=== PATIENT | male | born 1975 | race Caucasian/White ===

== ENCOUNTER 2019-12-26 21:21 | Emergency (ER) | payer OTHER, SELFPAY ==
[2019-12-26 21:25] VITALS: BP 146/100; PULSE 96; RESP 18; TEMP 37.3; O2SAT 98; BMI 32.8
--- NOTE | 2019-12-26 21:41 | PC.NURSE ---
at bedside repairing laceration
--- NOTE | 2019-12-26 21:52 | W.ED.ANIMALB ---
HPI - Animal Bite General: Chief Complaint: Animal Bite Stated Complaint: dog bite Time Seen by Provider: 12/26/19 21:33 History of Present Illness: HPI narrative: Patient was trying to break up a dog fight at his house with his son's dog and received a laceration to his right ring finger. Tetanus is up-to-date immunization dogs are up-to-date MD complaint: animal bite Onset (ago): minute(s) Animal: dog Description of animal: household pet and immunizations UTD Mechanism: bite Location - Extremities: Right: hand Pain description: sharp Severity scale (1-10): 1 Context: animals fighting Associated symptoms: Reports no associated symptoms; Deny chills, fever(s) or headache(s) Review of Systems Const: Denies: fever(s), chills or body aches Eyes: Denies: change in vision or blurry vision ENMT: Denies: throat pain or nasal congestion Card: Denies: chest pain or dyspnea on exertion Resp: Denies: dyspnea, productive cough or non-productive cough GI: Denies: abdominal pain, nausea or vomiting : Denies: difficulty urinating Musc: Denies: extremity pain Skin/Breast: Reports: other (Laceration right ring finger); Denies: rash Neuro: Denies: headache(s) Psych: Denies: anxiety or depression New/Lymph: Denies: easy bruising Physical Exam Const: COMMON NORMALS: no acute distress Psych: COMMON NORMALS: mental status grossly normal Skin: OTHER: Has a laceration to the right ring finger lateral aspect approximately 2 and half inches long has full range of motion finger distal neurovascular intact Procedures Laceration Laceration 1: Site: hand Side (If applicable): right Size (cm): 4.5 Description: linear Depth: simple, single layer Local Anesthetic: lidocaine 1% Amount of anesthesia used (mL): 3 Pre-repair: wound explored and irrigated extensively Skin layer closed with: vicryl Size (cm): 4-0 Number of sutures: 5 Technique: simple, interrupted Course Vital Signs: Vital signs: Vital Signs Temperature 99.2 F 12/26/19 21:25 Pulse Rate 96 12/26/19 21:25 Respiratory Rate 18 12/26/19 21:25 Blood Pressure 146/100 12/26/19 21:25 Pulse Oximetry 98 12/26/19 21:25 Discharge Plan Discharge Patient Disposition: Home Clinical Impression: Dog bite Qualifiers: Encounter type: initial encounter Qualified Code(s): W54.0XXA - Bitten by dog, initial encounter Laceration of finger of right hand Qualifiers: Encounter type: initial encounter Finger: ring finger Damage to nail status: without damage Foreign body presence: without foreign body Qualified Code(s): S61.214A - Laceration without foreign body of right ring finger without damage to nail, initial encounter Condition: Stable Prescriptions: New Augmentin 875-125 mg tablet 1 tab PO BID Qty: 14 RF: 0 Discharge Orders: Discharge Order (Routine); Ordered 12/26/19 Ordered By: Carlos Brito Referrals: Jojo Blanc MD [Primary Care Provider] - Discharge Diet: Usual diet Discharge Activity: Increase activity as tolerated Patient Instructions: Animal Bite (ED), Finger Laceration (ED) Activity Restrictions/Additional Instructions: Follow-up with medical provider as directed. Take medications as prescribed. Return to the ER or your medical provider if condition worsens. Please read and understand discharge instructions. If any questions ask please. Remove sutures in 7 days Discharge Date/Time: 12/26/19 22:14 Coding Level of Care Code ED Infection Prevention Practitioner for Walter Fwd Exam Expanded Problem Focused
[2019-12-26] MEDS: amoxicillin-clav 875-125 mg Tablet 1 TAB PO (22:12)
== END 2019-12-26 22:14 | disposition home or self-care (01) ==
PROVIDERS: Emergency Provider Nurse Practitioner Family; PCP Family Medicine
DX: S61.254A Open bite of right ring finger without damage to nail, initial encounter (principal); W54.0XXA Bitten by dog, initial encounter
CPT/HCPCS: 12002; 12345; 99281; 99283

== ENCOUNTER 2020-10-15 13:13 | Outpatient (CLI) | payer OTHER, SELFPAY ==
--- NOTE | 2020-10-15 13:24 | XRR_ITS ---
PROCEDURE INFORMATION: Exam: XR Lumbosacral Spine Exam date and time: 10/15/2020 1:24 PM Age: 45 years old Clinical indication: Pain and condition or disease; Other: Arthritis; Low back pain TECHNIQUE: Imaging protocol: XR of the lumbosacral spine. Views: 2 or 3 views. COMPARISON: No relevant prior studies available. FINDINGS: Bones/joints: Right L1 hypoplastic rib. Mild lumbar spondylosis. Soft tissues: Unremarkable. XR/XR lumbar spine 2-3V* [id number] IMPRESSION: Mild lumbar spondylosis.
--- NOTE | 2020-10-15 13:24 | XRR_ITS ---
PROCEDURE INFORMATION: Exam: XR Cervical Spine Exam date and time: 10/15/2020 1:24 PM Age: 45 years old Clinical indication: Pain and condition or disease; Other: Arthritis; Neck pain TECHNIQUE: Imaging protocol: XR of the cervical spine. Views: 2 or 3 views. COMPARISON: No relevant prior studies available. FINDINGS: Bones/joints: Bilateral cervical ribs. Mild C4-C5, C5-C6 and C6-C7 degenerative disc disease and spondylosis. Soft tissues: Unremarkable. XR/XR cervical spine 3V* [id number] IMPRESSION: 1. Bilateral cervical ribs. 2. Mild C4-C5, C5-C6 and C6-C7 degenerative disc disease and spondylosis.
--- NOTE | 2020-10-15 13:24 | XRR_ITS ---
PROCEDURE INFORMATION: Exam: XR Right Ankle Exam date and time: 10/15/2020 1:24 PM Age: 45 years old Clinical indication: Pain and condition or disease; Arthritis; Type not specified; Ankle and foot; Bilateral TECHNIQUE: Imaging protocol: XR Right ankle. Views: 1 or 2 views. COMPARISON: No relevant prior studies available. FINDINGS: Bones/joints: Normal. Soft tissues: Normal. XR/XR ankle RT 2V [id number] IMPRESSION: No acute findings.
--- NOTE | 2020-10-15 13:24 | XRR_ITS ---
PROCEDURE INFORMATION: Exam: XR Left Ankle Exam date and time: 10/15/2020 1:24 PM Age: 45 years old Clinical indication: Pain and condition or disease; Arthritis; Type not specified; Ankle and foot; Bilateral TECHNIQUE: Imaging protocol: XR Left ankle. Views: 1 or 2 views. COMPARISON: No relevant prior studies available. FINDINGS: Bones/joints: Chronic healed avulsion fracture and/or ununited accessory ossification center and/or chronic posttraumatic arthritis over the inferior tip of the medial malleolus. Soft tissues: Normal. XR/XR ankle LT 2V [id number] IMPRESSION: No acute findings.
== END 2020-10-15 13:14 | disposition home or self-care (01) ==
PROVIDERS: PCP Family Medicine; Visit Provider Chiropractor
DX: M13.80 Other specified arthritis, unspecified site (principal); M54.5 Low back pain; M47.816 Spondylosis without myelopathy or radiculopathy, lumbar region; M50.321 Other cervical disc degeneration at C4-C5 level
CPT/HCPCS: 72040; 72100; 73600

== ENCOUNTER 2021-09-10 09:32 | Emergency (ER) | payer OTHER, SELFPAY ==
[2021-09-10 09:40] VITALS: BP 134/91; PULSE 73; RESP 16; TEMP 36.7; O2SAT 98; BMI 30.4
--- NOTE | 2021-09-10 09:56 | ED_ITS ---
HPI - Eye Problem General: Chief complaint: Eye Problems Stated complaint: left eye issue Time Seen by Provider: 09/10/21 09:45 Source: patient Mode of arrival: ambulatory Limitations: no limitations History of Present Illness: Patient is a nice 46-year-old male who presents to ED today with a complaint of left eye pain x 1-2 days. Patient tells me he thinks he might of gotten something into it. 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 He never felt anything immediately while working but gradually developed symptoms later that evening. He denies any grinding metal/sand. He is having tearing, redness, and photophobia. No visual changes. Not noticed any swelling to the eye. No direct injury or trauma. Patient is a contact lens wearer. He admittedly does not remove his contacts at night. chief complaint: eye pain and eye redness Onset (ago): day(s) Onset description: gradual Duration: constant Location: left eye Eye Symptoms: redness, pain, foreign body sensation and photophobia Place: home Severity: moderate Context: contact lens use Associated symptoms: Denies fever(s) Treatments Prior to Arrival: none Related Data: Patient tetanus UTD: Yes Review of Systems Const: Denies: fever(s), chills, body aches, fatigue or malaise Eyes: Reports: photophobia, eye discomfort, eye redness and increased production of tears; Denies: change in vision, blurry vision, blind spots, eye discharge, floaters or seeing flashes Physical Exam Const: COMMON NORMALS: no acute distress, average body habitus, patient oriented x3, no limitations, healthy appearing, alert and well nourished HENMT: FACE & SINUS: normal facial exam Eye: COMMON NORMALS: Equal, round and reactive pupils present, EOMs intact bilaterally and no scleral icterus GENERAL EYE: normal light reflex VISUAL ACUITY: Yes acuity normal VISUAL ANDREWS: No peripheral vision loss and No central vision loss ALIGNMENT: Yes alignment normal PERIORBITAL: periorbital findings normal EYELID: eyelids normal CONJUNCTIVA: Yes conjunctival abnormal positive left conjunctival injection CORNEA: Yes fluorescein used PUPIL: Yes Equal, round and reactive pupils present DIRECT OPHTHALMOSCOPY: Yes normal light reflex OTHER: no obvious globe trauma; no subconjuntival hemorrhage or hyphema present; no obvious deficits/abnormalities noted with direct light visualization EYE IMAGES: 1. small punctate lesion noted with fluorescein staining; lesion is not obviously visible under direct light; does appear to have some stain uptake to inferior cornea w/o specific pattern-not dendritic Neuro: COMMON NORMALS: patient oriented x3 SENSORIUM/ORIENTATION: Yes alert Course Vital Signs: Vital signs: Vital Signs Temperature 98.0 F 09/10/21 09:40 Pulse Rate 73 09/10/21 09:40 Respiratory Rate 16 09/10/21 09:40 Blood Pressure 134/91 09/10/21 09:40 Pulse Oximetry 98 09/10/21 09:40 MDM - Eye Problem Medical Decision Making DDx-corneal abrasion due to trauma, foreign body, or contact lens use. 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 Will place on tobramycin which will cover for pseudomonas and have him follow up with opht halmology as soon as possible-CM referral placed for this. Recommend no contact use until told otherwise. Strict return to ED precautions given. Discharge Plan Discharge Patient Disposition: Home Clinical Impression: Corneal abrasion Qualifiers: Encounter type: initial encounter Laterality: left Qualified Code(s): S05.02XA - Injury of conjunctiva and corneal abrasion without foreign body, left eye, initial encounter Condition: Stable Prescriptions: New tobramycin 0.3 % drops 2 drp ophthalmic (eye) Q1H 10 Days Qty: 5 0RF Rx Instructions: 2 drops in L eye every 1 hour until improvement; then 1-2 drops every 4 hours thereafter No Action Augmentin 875-125 mg tablet 1 tab PO BID Qty: 14 0RF Discharge Orders: Discharge ED (Routine); Ordered 09/10/21 Ordered By: Aida Aquino Referrals: Jojo Blanc MD [Physician] - Kali Schwarz MD [Physician] - Coding Level of Care Code ED Component Assembler Supervisor for Walter Lazo
[2021-09-10] MEDS: eye irrigation 30 mL Btl EYE-LEFT (10:28)
[2021-09-10] MEDS: fluorescein 1 mg Strip EYE-LEFT (10:28)
[2021-09-10] MEDS: tetracaine 0.5% Op Soln 4 mL Btl 1 DROP EYE-LEFT (10:29)
--- NOTE | 2021-09-10 11:30 | DCPLANNER ---
it disaster recovery manager had message to schedule a follow up appointment for patient with Dr. Schwarz. it disaster recovery manager faxed patients information to the office of Dr. Schwarz. Clinic will call patient with appointment information.
== END 2021-09-10 10:53 | disposition home or self-care (01) ==
PROVIDERS: Emergency Provider Physician Assistant
DX: S05.02XA Injury of conjunctiva and corneal abrasion without foreign body, left eye, initial encounter (principal); X58.XXXA Exposure to other specified factors, initial encounter
CPT/HCPCS: 99283

== ENCOUNTER 2023-01-13 07:00 | Outpatient (CLI) | payer OTHER, SELFPAY ==
--- NOTE | 2023-01-13 | MR_ITS ---
WS: [id number] MRI CERVICAL SPINE NONCONTRAST TECHNIQUE: Sagittal T1, T2 and STIR imaging. Axial T2, gradient, and fiesta imaging. CLINICAL INFORMATION: RADICULOPATHY COMPARISON: None. FINDINGS: Straightening of the normal cervical lordosis. Cord signal is normal. Mild disc bulging C4-C6. Cord s ignal is normal. C2-C3: Mild facet arthropathy. Mild LEFT foraminal narrowing. C3-C4: Mild facet arthropathy. Mild LEFT and no significant RIGHT bony foraminal narrowing. C4-C5: Disc osteophyte complex with endplate ridging. Mild bilateral bony foraminal narrowing. Modera te facet arthropathy. Spinal canal is patent. C5-C6: Central and LEFT paracentral disc osteophyte protrusion with slight indentation on the cervica l cord. Mild central canal stenosis. Moderate RIGHT and mild LEFT bony foraminal narrowing. Mild arth ropathy. C6-C7: Shallow RIGHT paracentral protrusion. Moderate to severe LEFT and mild RIGHT bony foraminal na rrowing. Spinal canal is patent. C7-T1: Spinal canal and foramen are patent. Visualized brain stem structures: Normal. Prevertebral soft tissues: Normal. IMPRESSION: 1. Straightening normal cervical lordosis. Mild spondylitic changes. 2. Mild central canal stenosis C5-C6 with central and LEFT paracentral disc osteophyte protrusion wi th slight indentation cervical cord. 3. Moderate RIGHT C5-6 and moderate to severe LEFT C6-7 bony foraminal narrowing. 4. Otherwise mild foraminal narrowing described above.
--- NOTE | 2023-01-13 07:13 | US_ITS ---
WS: [id number] RIGHT UPPER QUADRANT ULTRASOUND HISTORY: ELIVATED LIVER ENZIMES COMPARISON: None available. Liver: 17.4 cm in length. Liver is top normal size. No mass. No bile duct dilatation. Portal Vein: Normal hepatopetal flow with monophasic waveform. Gallbladder: Normally distended gallbladder with no stones or wall thickening. CBD: 0.3 cm Pancreas: Obscured. Right kidney: 12.4 cm in length. Normal size and echogenicity. No hydronephrosis or mass. Aorta and IVC: Unremarkable abdominal aorta and IVC. No ascites. IMPRESSION: 1. Normal gallbladder. 2. No bile duct dilatation. 3. Nonvisualization of the pancreas.
== END 2023-01-13 07:01 | disposition home or self-care (01) ==
LOC: RAD 07:02
PROVIDERS: PCP Family Medicine; Visit Provider Family Medicine
DX: M47.22 Other spondylosis with radiculopathy, cervical region (principal); M48.02 Spinal stenosis, cervical region; M25.78 Osteophyte, vertebrae
CPT/HCPCS: 72141; 76705

== ENCOUNTER → 2023-03-19 13:11 | Outpatient (BNVA) | payer OTHER, SELFPAY | PROVIDERS: PCP Family Medicine; Visit Provider Podiatrist Foot & Ankle Surgery | DX: M25.572 Pain in left ankle and joints of left foot (principal); M95.8 Other specified acquired deformities of musculoskeletal system | CPT/HCPCS: 73610; 99203 ==

== ENCOUNTER 2023-04-15 11:24 | Outpatient (CLI) | payer OTHER, SELFPAY ==
--- NOTE | 2023-04-15 11:34 | MR_ITS ---
WS: [id number] MRI LUMBAR SPINE NONCONTRAST TECHNIQUE: Sagittal T1, T2 and STIR imaging. Axial T1 and T2 imaging. CLINICAL INFORMATION: LOW BACK PAIN COMPARISON: None. FINDINGS: Mild lumbar curve. No acute compression. No high-grade central canal stenosis. Shallow central protru sions in the cervical spine at C4-C6. L1-L2: Normal. L2-L3: Mild facet arthropathy. Spinal canal and foramen are patent. L3-L4: Tiny RIGHT foraminal protrusion slightly encroaches on the exiting RIGHT L3 nerve root. Spinal canal and foramen are patent. Mild facet arthropathy. L4-L5: Mild annular bulging. RIGHT eccentric annular fissure. Spinal canal is patent. RIGHT eccentric disc bulging slightly encroaches on the far exiting RIGHT L4 nerve root without significant impingem ent. Mild facet arthropathy. L5-S1: LEFT eccentric disc bulging contacts the far exit LEFT L5 nerve root laterally. Spinal canal a nd RIGHT foramen are patent. Mild facet arthropathy. Visualized pelvic bony structures: Normal. Paravertebral soft tissues: Normal. IMPRESSION: 1. Mild lumbar curve. No acute compression. No high-grade central canal stenosis. 2. Tiny RIGHT foraminal protrusion L4-5 with a small annular fissure slightly encroaches on the far exiting RIGHT L4 nerve root without significant impingement. 3. LEFT eccentric disc bulging L5-S1 contacts the exiting LEFT L5 nerve root laterally. Recommend co rrelation LEFT L5 nerve root symptoms. 4. Tiny RIGHT L3-4 foraminal protrusion slightly encroaches on the exiting RIGHT L3 nerve root. 5. Mild facet arthropathy L4-L5 and L5-S1.
== END 2023-04-15 11:25 | disposition home or self-care (01) ==
LOC: RAD 11:25
PROVIDERS: PCP Family Medicine; Visit Provider Family Medicine
DX: M54.16 Radiculopathy, lumbar region (principal); M51.26 Other intervertebral disc displacement, lumbar region
CPT/HCPCS: 72148

== ENCOUNTER 2023-05-12 14:54 | Outpatient (CLI) | payer OTHER, SELFPAY ==
--- NOTE | 2023-05-12 15:15 | MR_ITS ---
WS: [id number] MRI LEFT ANKLE WITHOUT CONTRAST. COMPARISON: LEFT ankle radiograph 03/19/2023 Multiplanar, multisequence imaging is performed without contrast. History: LEFT ankle pain. History of prior surgical repair along the anterior lateral ankle. Postoper ative pain. There is significant artifact obscuring a large portion of the lateral ankle. Artifact extends throug h the distal fibula into the talus. Obliterating soft tissue in bone evaluation of the lateral ankle joint. There is distortion of the anterior talofibular ligament. The calcaneofibular ligament appears normal. The peroneus brevis and longus tendons are normal course and caliber. Achilles tendon is normal. The flexor hallucis longus and flexor digitorum longus tendons are normal. There is a marker placed along the anterior ankle which corresponds to the extensor digitorum longus tendon. This tendon appears normal. There is no fluid or tear seen. The talus evaluation is limited as is the tibial plafond due to distortion and artifact from the surg ical hardware. IMPRESSION: 1. Large portion of the lateral ankle is distorted and obscured by significant blooming artifact pro bably related to the prior surgery. 2. The visualized flexor and extensor tendons appear normal. 3. No fractures or marrow edema. 4. Normal Achilles tendon.
== END 2023-05-12 14:55 | disposition home or self-care (01) ==
LOC: RAD 14:54
PROVIDERS: PCP Family Medicine; Visit Provider Podiatrist Foot & Ankle Surgery
DX: M95.8 Other specified acquired deformities of musculoskeletal system (principal); Z98.890 Other specified postprocedural states
CPT/HCPCS: 73721

== ENCOUNTER → 2023-05-22 08:57 | Outpatient (BNVA) | payer OTHER, SELFPAY | PROVIDERS: PCP Family Medicine; Referring Provider Family Medicine; Visit Provider Podiatrist Foot & Ankle Surgery | DX: M95.8 Other specified acquired deformities of musculoskeletal system; M25.372 Other instability, left ankle | CPT/HCPCS: 99213 ==

== ENCOUNTER → 2023-08-18 07:47 | Outpatient (BNVA) | payer OTHER, SELFPAY | PROVIDERS: PCP Family Medicine; Visit Provider Podiatrist Foot & Ankle Surgery | DX: M95.8 Other specified acquired deformities of musculoskeletal system; M25.372 Other instability, left ankle | CPT/HCPCS: 99213 ==

== ENCOUNTER 2023-11-08 09:21 | Emergency (ER) | payer OTHER, SELFPAY ==
[2023-11-08 09:25] VITALS: BP 174/107; PULSE 86; RESP 22; TEMP 36.6; BMI 35.2
[2023-11-08 09:33] VITALS: BP 174/107; PULSE 79; RESP 22; O2SAT 95
--- NOTE | 2023-11-08 09:34 | XRR_ITS ---
PROCEDURE INFORMATION: Exam: XR Left Shoulder Exam date and time: 11/08/2023 9:50 AM Age: 48 years old Clinical indication: Pain; Shoulder; Left; Additional info: Non-traumatic shoulder pain TECHNIQUE: Imaging protocol: Radiologic exam of the left shoulder. Views: 2 or more views. COMPARISON: MR cervical spin wo con* [id number] 01/13/2023 8:01 AM FINDINGS: Bones/joints: ACDF changes in the lower cervical spine. Mild degenerative disease of the left acromioclavicular joint. Mild degenerative disease of the left glenohumeral joint. Soft tissues: Normal. XR/XR shoulder LT min 2V* [id number] IMPRESSION: No acute fracture or dislocation.
--- NOTE | 2023-11-08 09:34 | W.ED.EXTPRO ---
HPI - Extremity Problem General: Chief complaint: Extremity Injury, Upper Stated complaint: left shoulder pain Time Seen by Provider: 11/08/23 09:32 History of Present Illness: 48-year-old man who presents the emergency room with left shoulder pain. He says he had driven a few hours and then used his cane with his left arm and when he got home that evening he started having pain and its become worse over time. He says he took hydrocodone last night that did not help that was leftover from an ankle surgery. No known injuries. No redness. Tenderness to palpation on the lateral shoulder area. In the rotator cuff area. Pain with movement. Pain radiates down his arm. No chest pain. No shortness of breath. No fevers. Review of Systems Narrative: Constitutional symptoms: Negative except as documented in HPI. Skin symptoms: Negative except as documented in HPI. Eye symptoms: Negative except as documented in HPI. ENMT symptoms: Negative except as documented in HPI. Respiratory symptoms: Negative except as documented in HPI. Cardiovascular symptoms: Negative except as documented in HPI. Gastrointestinal symptoms: Negative except as documented in HPI. Genitourinary symptoms: Negative except as documented in HPI. Musculoskeletal symptoms: Negative except as documented in HPI. Neurologic symptoms: Negative except as documented in HPI. Psychiatric symptoms: Negative except as documented in HPI. Endocrine symptoms: Negative except as documented in HPI. Physical Exam Narrative: EXAM NARRATIVE: General: Alert, no acute distress. Skin: warm and dry Head: Normocephalic Neck: Trachea midline Eye: Extraocular movements are intact. Ears, nose, mouth and throat: Oral mucosa moist Respiratory: Respirations are non-labored Musculoskeletal: Limited range of motion secondary to pain. Point tenderness on the lateral shoulder joint area. No redness. No warmth. Neurovascularly intact. Neurological: Alert and oriented, No focal neurological deficit observed. Psychiatric: Cooperative, appropriate mood & affect. Course Vital Signs: Vital signs: Vital Signs Temperature 97.8 F 11/08/23 09:25 Pulse Rate 79 11/08/23 09:33 Respiratory Rate 22 H 11/08/23 09:33 Blood Pressure 174/107 11/08/23 09:33 Pulse Oximetry 95 11/08/23 09:33 Oxygen Delivery Me thod Room Air 11/08/23 09:33 MDM - Extremity (Nontraumatic) Medical Decision Making X-ray of the left shoulder: No fractures. No dislocation. No obvious acute abnormalities. This was reviewed and interpreted by myself the emergency room physician. Assessment and plan: Shoulder pain -Hydrocodone, IM Toradol and Decadron in the emergency room. - Discharged home - Discussed plan with patient. Answered any questions. - Evaluation and treatment of this problem were appropriate in the emergency setting. XR interpretation done by ED provider, pending radiology final review Discharge Plan Discharge Patient Disposition: Home Clinical Impression: Injury of left rotator cuff Qualifiers: Encounter type: initial encounter Qualified Code(s): S46.002A - Unspecified injury of muscle(s) and tendon(s) of the rotator cuff of left shoulder, initial encounter Condition: Stable Prescriptions: New hydrocodone-acetaminophen 5-325 mg tablet 1 tab PO Q6H PRN (Reason: pain) Qty: 20 0RF dexamethasone 6 mg tablet 6 mg PO DAILY 5 Days Qty: 5 0RF diclofenac sodium 50 mg tablet,delayed release (DR/EC) 50 mg PO Q12H Qty: 20 0RF Miralax 17 gram/dose powder 17 g PO DAILY Qty: 510 0RF Rx Instructions: Take 1 scoop daily while taking pain medications. No Action Augmentin 875-125 mg tablet 1 tab PO BID Qty: 14 0RF Discharge Orders: Discharge ED (Routine); Ordered 11/08/23 Ordered By: Jessica Aldrich Referrals: Jasmyn Morocho MD [Primary Care Provider] - 1-3 days Chase Lemus DO [Physician] - 4-7 days (Call for an appointment if pain persists) Discharge Activity: Increase activity as tolerated Patient Instructions: Shoulder Pain (ED) Activity Restrictions/Additional Instructions: Thank you for choosing [facility] for your healthcare needs today. Please realize this is an emergency room and that we are providing you with a medical screening exam and this may not be complete and all inclusive of all the testing and or work up that you may need to determine your ailment or severity of your illness. You have been screened and evaluated and felt safe for discharge. Health conditions do change or evolve sometimes and as such it is important that you follow up with your Primary Doctor to be re checked, 3-5 days is a general good time frame for follow up. You are always welcome to return to the ED for re assessment if your symptoms are worsening or you have new concerns Coding Level of Care Code ED Tubular Splitting Machine Tender for aWlter Lazo
[2023-11-08] MEDS: HYDROcodone-acetaminophen 5-325 mg Tablet 1 TAB PO (09:38)
[2023-11-08] MEDS: dexamethasone 10 mg/mL INJ IM (09:43)
[2023-11-08] MEDS: ketorolac 60 mg/2 mL INJ IM (09:44)
[2023-11-08 10:22] VITALS: BP 174/107; PULSE 79; RESP 22; TEMP 36.6; O2SAT 95
== END 2023-11-08 10:30 | disposition home or self-care (01) ==
PROVIDERS: Emergency Provider Emergency Medicine; PCP Family Medicine
DX: S46.002A Unspecified injury of muscle(s) and tendon(s) of the rotator cuff of left shoulder, initial encounter (principal); X50.9XXA Other and unspecified overexertion or strenuous movements or postures, initial encounter
CPT/HCPCS: 73030; 96372; 99284; J1100; J1885

== ENCOUNTER 2023-11-16 09:37 | Emergency (ER) | payer OTHER, SELFPAY ==
[2023-11-16 09:40] VITALS: BP 161/104; PULSE 83; RESP 16; TEMP 37; O2SAT 98; BMI 34.4
--- NOTE | 2023-11-16 09:43 | W.ED.ABDPA2 ---
HPI - Abdominal Pain General: Chief Complaint: Abdominal Pain Stated Complaint: abd pain Time Seen by Provider: 11/16/23 09:40 Source: patient Mode of arrival: ambulatory Limitations: no limitations History of Present Illness: Patient is a nice 48-year-old male presents to ED today with a complaint of abdominal pain. Patient states he has had a known hernia to his upper abdomen for a long time that normally does not cause him any issues but he states he was lifting weights approximately a week and a half ago and felt like something pulled and since then has been having increasing discomfort. He is reporting increased belching. He feels like his lower abdomen is sore and crampy. He is reporting black stools. Patient states he has been told several times previously he has blood in his stool but they can never find a cause. Patient is not vomiting. He is still passing flatulence. No reported fevers. MD elicited complaint: abdominal pain Pertinent past history: none Onset (ago): day(s) Pain Consistency: intermittent Severity: moderate Quality: cramping and sharp Radiation: none Migration to: no migration Exacerbating factors: nothing Relieving factors: nothing Associated Symptoms: Reports bloating, GI cramping and melena; Denies chills, diarrhea, dysuria, fever(s), hematochezia, hematemesis and vomiting Review of Systems Const: Denies: fever(s), chills, body aches, fatigue or malaise Card: Denies: chest pain Resp: Denies: dyspnea GI: Reports: abdominal pain, bloating, GI cramping and melena; Denies: vomiting, hematemesis, diarrhea or hematochezia : Denies: flank pain, difficulty urinating, dysuria, urinary frequency, urinary urgency or urinary hesitancy Musc: Denies: neck pain, back pain, extremity pain or joint pain Skin/Breast: Denies: rash Neuro: Denies: headache(s), numbness in extremities, weakness in extremities, sensory changes or dizziness Physical Exam Const: COMMON NORMALS: no acute distress, average body habitus, patient oriented x3, no limitations, healthy appearing, alert and well nourished GENERAL APPEARANCE: cooperative ORIENTATION/CONSCIOUSNESS: Yes awake, Yes oriented to person, Yes oriented to place and Yes oriented to time Eye: COMMON NORMALS: no scleral icterus Chest: COMMONS NORMALS: normal inspection of the chest and normal palpation of entire chest wall Resp: COMMON NORMALS: normal respiratory effort and clear to auscultation bilaterally AUSCULTATION: clear to auscultation bilaterally Cardio: COMMON NORMALS: regular rate and regular rhythm RATE: regular rate RHYTHM: regular rhythm GI: COMMON NORMALS: Normal to inspection, nondistended, normoactive bowel sounds present, Soft to palpation, No hepatosplenomegaly present and no masses INSPECTION: Yes normal to inspection AUSCULTATION: Yes normoactive bowel sounds PALPATION: Yes Soft to palpation, Yes Tenderness to palpation present (GI) (upper abdomen just left of midline-small defect noted), Yes Guarding due to palpation present (GI), No Rigid due to palpation and Yes No hepatosplenomegaly present RECTAL EXAM: Yes heme negative stool OTHER: no incarcerated or strangulated hernia noted; tenderness across lower abdomen : COMMON NORMALS: Yes no CVA tenderness BLADDER/KIDNEY EXAM: Yes no CVA tenderness Back/Pelvis: COMMON NORMALS: no CVA tenderness and thoracic and lumbar spine normal to inspection Extremity: GENERAL: Yes normal exam except as noted Neuro: COMMON NORMALS: patient oriented x3, moves all extremities, no focal motor deficits, no sensory deficits noted and gait normal SENSORIUM/ORIENTATION: Yes alert, Yes oriented to person, Yes oriented to place and Yes oriented to time Skin: COMMON NORMALS: no rashes or lesions noted GENERAL SKIN EXAM: no rashes or lesions noted Course Vital Signs: Vital signs: Vital Signs Temperature 98.6 F 11/16/23 09:40 Pulse Rate 74 11/16/23 10:56 Respiratory Rate 16 11/16/23 09:40 Blood Pressure 145/107 11/16/23 10:56 Pulse Oximetry 97 11/16/23 10:56 Oxygen Delivery Me thod Room Air 11/16/23 10:56 MDM - Abdominal Pain Medical Decision Making Patient here for complaints of abdominal pain that started about a week and a half ago after lifting weights. Blood work overall is nonactionable. UA is clear. His CT scan showing no acute findings. He did mention black stools during history taking. Hemoccult was collected and negative. He does admit to taking Pepto. He has a follow-up appointment with his PCP on Thursday but I recommend he follow-up with. Return to ED precautions given. Medical Records I reviewed the patient's medical records. Lab Data I reviewed the patient's lab results. 11/16/23 09:55 11/16/23 09:55 Labs/Radiology: Radiology Impressions Abdomen/Pelvis CT 11/16/23 09:49 IMPRESSION: 1. Mild diffuse fatty infiltration of the liver. 2. No other suspicious findings. Laboratory Results WBC 8.70 10^3/uL (3.29-11.43) 11/16/23 09:55 RBC 5.65 10^6/uL (3.85-5.65) 11/16/23 09:55 Hgb 17.00 g/dL (11.27-16.99) H 11/16/23 09:55 Hct 49.2 % (37-53) 11/16/23 09:55 MCV 87.1 fl (82-101) 11/16/23 09:55 MCH 30.1 pg (27-33) 11/16/23 09:55 MCHC 34.6 g/dL (30-55) 11/16/23 09:55 RDW 11.8 % (12.1-15.1) L 11/16/23 09:55 Plt Count 261 10^3/cmm (157-399) 11/16/23 09:55 MPV 8.7 fL (7.4-10.4) 11/16/23 09:55 Neut % (Auto) 67.3 % 11/16/23 09:55 Lymph % (Auto) 21.7 % 11/16/23 09:55 [place] % (Auto) 6.8 % 11/16/23 09:55 Eos % (Auto) 3.4 % 11/16/23 09:55 Baso % (Auto) 0.3 % 11/16/23 09:55 Neut # (Auto) 5.85 10^3/uL (1.8-7.7) 11/16/23 09:55 Lymph # (Auto) 1.9 10^3/uL (0.8-4.8) 11/16/23 09:55 [place] # (Auto) 0.6 10^3/uL (0.2-0.9) 11/16/23 09:55 Eos # (Auto) 0.3 10^3/uL (0.0-0.8) 11/16/23 09:55 Baso # (Auto) 0.0 10^3/uL (0.0-0.1) 11/16/23 09:55 Nucleated RBC % (auto) 0 % 11/16/23 09:55 Nucleated RBCs # 0.0 /100WBC 11/16/23 09:55 Sodium 135 mmol/L (136-145) L 11/16/23 09:55 Potassium 3.9 mmol/L (3.5-5.1) 11/16/23 09:55 Chloride 99 mmol/L (98-107) 11/16/23 09:55 Carbon Dioxide 23 mmol/L (22-29) 11/16/23 09:55 Anion Gap 16.9 (5-19) 11/16/23 09:55 BUN 14 mg/dL (6-20) 11/16/23 09:55 Creatinine 1.1 mg/dL (0.7-1.2) 11/16/23 09:55 GFR Calculation 72.1 mL/min (90-130) L 11/16/23 09:55 Glucose 117 mg/dL (65-115) H 11/16/23 09:55 Calculated Osmolality 282 mOsm/kg (285-295) L 11/16/23 09:55 Calcium 9.3 mg/dL (8.5-10.5) 11/16/23 09:55 Total Bilirubin 0.4 mg/dL (0.15-1.2) 11/16/23 09:55 AST 38 U/L (0-40) 11/16/23 09:55 ALT 100 U/L (0-41) H 11/16/23 09:55 Alkaline Phosphatase 75 U/L (40-130) 11/16/23 09:55 Total Protein 7.2 g/dL (6.6-8.7) 11/16/23 09:55 Albumin 4.2 g/dL (3.5-5.2) 11/16/23 09:55 Globulin 3.0 g/dL (1.3-4.6) 11/16/23 09:55 Lipase 49 U/L (13-60) 11/16/23 09:55 Urine Color Yellow (Yellow) 11/16/23 10:31 Urine Appearance Clear (CLEAR) 11/16/23 10:31 Urine pH 7 (5-7) 11/16/23 10:31 Ur Specific [place] 1.005 (1.005-1.030) 11/16/23 10:31 Urine Protein Neg (Negative) 11/16/23 10:31 Urine Glucose (UA) Norm (Normal) 11/16/23 10:31 Urine Ketones Negative (Negative) 11/16/23 10:31 Urine Blood Neg (Negative) 11/16/23 10:31 Urine Nitrate Negative (Negative) 11/16/23 10:31 Urine Bilirubin Neg (Negative) 11/16/23 10:31 Urine Urobilinogen Norm mg/dL (Negative) 11/16/23 10:31 Ur Leukocyte Esterase Negative (Negative) 11/16/23 10:31 All radiology interpretation(s) finalized by discharge Discharge Plan Discharge Patient Disposition: Home Clinical Impression: Abdominal pain Qualifiers: Abdominal location: generalized Qualified Code(s): R10.84 - Generalized abdominal pain Condition: Stable Prescriptions: No Action Augmentin 875-125 mg tablet 1 tab PO BID Qty: 14 0RF hydrocodone-acetaminophen 5-325 mg tablet 1 tab PO Q6H PRN (Reason: pain) Qty: 20 0RF diclofenac sodium 50 mg tablet,delayed release (DR/EC) 50 mg PO Q12H Qty: 20 0RF Miralax 17 gram/dose powder 17 g PO DAILY Qty: 510 0RF Rx Instructions: Take 1 scoop daily while taking pain medications. Discharge Orders: Discharge ED (Routine); Ordered 11/16/23 Ordered By: Aida Aquino Referrals: Jasmyn Morocho MD [Primary Care Provider] - Patient Instructions: Abdominal Pain (ED) Activity Restrictions/Additional Instructions: As we discussed I would like you to follow-up with your primary care provider at your currently scheduled appointment on Thursday. You may return to the emergency department for worsening abdominal pain, repetitive episodes of vomiting, fevers, inability to have bowel movement or pass gas or any other concerns you may have. Coding Level of Care Code ED Bulk Station Agent for Walter Lazo
--- NOTE | 2023-11-16 09:49 | CT_ITS ---
WS: [id number] CT ABDOMEN PELVIS TECHNIQUE: Contrast-enhanced CT of the abdomen and pelvis with coronal and sagittal reformatted image s. CLINICAL INFORMATION: abdominal pain, hernia, belching, black stools COMPARISON: None. DLP: 977.[address] scans at [facility] use at least one of these dose optimization techniques: automated e xposure control; mA and/or kV adjustment per patient size (includes targeted exams where dose is matc hed to clinical indication); or iterative reconstruction. FINDINGS: Mild diffuse fatty infiltration of the liver. Normal portal vein and splenic vein. Normal GE junction . Adrenal glands are normal. Normal renal parenchymal enhancement. No hydronephrosis. Tiny renal cyst s. Small fat-containing umbilical hernia. Normal sigmoid colon. No evidence of small or large bowel obstruction. No free fluid in the abdomen o r pelvis. No other acute findings. CT/CT abdomen pelvis w con* [id number] IMPRESSION: 1. Mild diffuse fatty infiltration of the liver. 2. No other suspicious findings.
[2023-11-16 10:03] LABS: Basophils % 0.3 %; Eosinophils # 0.3 10^3/uL (0.0-0.8); Eosinophils % 3.4 %; Hematocrit 49.2 % (37-53); Lymphocytes # 1.9 10^3/uL (0.8-4.8); Lymphocytes % 21.7 %; Mean Corpuscular HGB Conc 34.6 g/dL (30-55); Mean Corpuscular Hemoglobin 30.1 pg (27-33); Mean Corpuscular Volume 87.1 fl (82-101); Mean Platelet Volume 8.7 fL (7.4-10.4); Monocytes # 0.6 10^3/uL (0.2-0.9); Monocytes % 6.8 %; Neutrophils # 5.85 10^3/uL (1.8-7.7); Neutrophils % 67.3 %; Nucleated Red Blood Cells % 0 %; Platelet Count 261 10^3/cmm (157-399); Red Blood Count 5.65 10^6/uL (3.85-5.65); Red Cell Distribution Width 11.8 % (12.1-15.1)
[2023-11-16] MEDS: iohexol 350 mg/mL 500 mL Btl (per mL) IV (10:06)
[2023-11-16 10:25] LABS: Alanine Aminotransferase 100 U/L (0-41); Albumin Level 4.2 g/dL (3.5-5.2); Alkaline Phosphatase 75 U/L (40-130); Anion Gap 16.9 (5-19); Aspartate Amino Transferase 38 U/L (0-40); Blood Urea Nitrogen 14 mg/dL (6-20); Calcium 9.3 mg/dL (8.5-10.5); Carbon Dioxide 23 mmol/L (22-29); Chloride 99 mmol/L (98-107); Creatinine Clr Calc Pharmacy 94.4463; Glomerular Filtration Rate 72.1 mL/min (90-130); Glucose 117 mg/dL (65-115); Lipase 49 U/L (13-60); Osmolality Calculated 282 mOsm/kg (285-295); Potassium 3.9 mmol/L (3.5-5.1); Sodium 135 mmol/L (136-145); Total Bilirubin 0.4 mg/dL (0.15-1.2); Total Protein 7.2 g/dL (6.6-8.7)
[2023-11-16 10:39] LABS: Add Urine Microscopic? NO; Charge for UA Resulting for Rev
[2023-11-16 10:56] VITALS: BP 145/107; PULSE 74; O2SAT 97
[2023-11-16 10:58] LABS: Bilirubin Urine Neg (Negative); Blood Urine Neg (Negative); Glucose Urine UA Norm (Normal); Ketones Urine Negative (Negative); Leukocyte Esterase Urine Negative (Negative); Nitrate Urine Negative (Negative); Protein Urine Neg (Negative); Specific Gravity, Urine 1.005 (1.005-1.030); Urine Appearance Clear (CLEAR); Urine Color Yellow (Yellow); Urobilinogen Urine Norm (Negative); pH Urine 7 (5-7)
[2023-11-16 11:19] VITALS: BP 145/107; PULSE 74; RESP 16; TEMP 37; O2SAT 97
== END 2023-11-16 11:23 | disposition home or self-care (01) ==
PROVIDERS: Emergency Provider Physician Assistant; PCP Family Medicine
DX: R10.84 Generalized abdominal pain (principal)
CPT/HCPCS: 74177; 80053; 81003; 83690; 85025; 99285; Q9967

== ENCOUNTER → 2023-11-26 11:31 | Outpatient (BNVA) | payer OTHER, SELFPAY | PROVIDERS: PCP Family Medicine; Visit Provider Podiatrist Foot & Ankle Surgery | DX: M95.8 Other specified acquired deformities of musculoskeletal system; M25.572 Pain in left ankle and joints of left foot; M25.372 Other instability, left ankle | CPT/HCPCS: 99214 ==

== ENCOUNTER 2023-12-09 05:41 | Day surgery (SDC) | payer OTHER, SELFPAY ==
--- OUTSIDE RECORDS SUMMARY | 2023-12-07 09:38 | XMS_ITS | Continuity of Care Document ---
Author Name Unknown Organization [facility] Address [address] [place] [address]- Care Team Providers Care Security Support Analyst Name Role Phone Devante Brock MD Primary Care Physician [phone] Encounter Field Financial Number [id number] Date(s): 06/19/23 - 06/19/23 [facility] [address] [place] [address]- [phone] Encounter Diagnosis Cervical radiculopathy(Discharge Diagnosis) - 06/19/23 Cervical spondylosis(Discharge Diagnosis) - 06/19/23 Discharge Disposition: .Discharge to Home (Routine) Attending Physician: Elliot Hernández MD Admitting Physician: Elliot Hernández MD Allergies, Adverse Reactions, Alerts Substance Reaction Severity Status amoxicillin i think it caused a rash Unknown A ctive Assessment and Plan Extracted from: Title:Instructions to Patients Author:Samantha Nayak RN Date:06/19/23 Gastroenterology How to Prevent Constipation After Surgery Constipation is a common problem after surgery. Many things can make constipation more likely after a surgery, including: ? ? Certain medicines, especially numbing medicines (anesthetics) and very strong pain medicines called opioids. ? ? Feeling stressed because of the surgery. ? ? Eating different foods than normal. ? ? Being less active. Symptoms of constipation include: ? ? Having fewer than three bowel movements a week. ? ? Straining to have a bowel movement. ? ? Having hard, dry, or idcsuf-xjkp-jybaaf stools (feces). ? ? Discomfort in the lower abdomen, such as cramps or bloating. ? ? Not feeling relief after having a bowel movement. ? ? Nausea and vomiting. You can take steps to help prevent constipation after surgery. Follow these instructions at home: Eating and drinking ? ? Eat foods that have a lot of fiber in them, such as beans, bran, whole grains, and fresh fruits and vegetables. ? ? Limit foods that are high in fat and processed sugars, such as fried or sweet foods. These include thai fries, hamburgers, cookies, and candy. ? ? Take a fiber supplement as told by your health care provider. If you are not taking a fiber supplement and you think you are not getting enough fiber from foods, talk to your health care provider about adding a fiber supplement to your diet. ? ? Drink enough fluid to keep your urine pale yellow. ? ? Drink clear fluids, especially water. Avoid drinking alcohol, caffeine, and soda. These can make constipation worse. Activity ? ? After surgery, return to your normal activities slowly, or when your health care provider says it is okay. ? ? Start walking as soon as you can. Try to go a little farther each day. ? ? Once your health care provider approves, do some sort of regular exercise. This helps prevent constipation. Bowel movements ? ? Go to the restroom when you have the urge to go. Do not hold it in. ? ? Try drinking something hot to get a bowel movement started. ? ? Keep track of how often you use the restroom. Medicines ? ? Take ncbd-vss-tdjdmvb and prescription medicines only as told by your health care provider. ? ? Talk to your health care provider about medicines that may help prevent constipation, particularly if you have a history of constipation. Your health care provider may suggest a stool softener, laxative, or fiber supplement. ? ? Do not take any medicines without talking to your health care provider first. Contact a health care provider if: ? ? You used stool softeners or laxatives and still have not had a bowel movement within 24? 48 hours after using them. ? ? You have not had a bowel movement in 3 days. ? ? You have a fever. Get help right away if you have: ? ? Constipation that lasts for more than 4 days or if your symptoms get worse. ? ? Bright red blood in your stool. ? ? Pain in the abdomen or rectum. ? ? Very bad cramping. ? ? Thin, pencil-like stools. ? ? Unexplained weight loss. Summary ? ? Constipation is a common problem after surgery. Many things can make constipation more likely after a surgery, including certain medicines, eating different foods than normal, and being less active. ? ? Symptoms of constipation include having fewer than three bowel movements a week, straining to have a bowel movement, and cramps or bloating in the lower abdomen. ? ? To help prevent constipation, you should eat foods that are high in fiber, drink plenty of fluids, and get regular physical activity. ? ? Your health care provider may suggest medicines, such as stool softeners or laxatives, to help prevent constipation. This information is not intended to replace advice given to you by your health care provider. Make sure you discuss any questions you have with your health care provider. Document Revised: 02/22/2020 Document Reviewed: 02/22/2020 [employer] Patient Education ?? 2021 [employer]. Orthopedics Anterior Cervical Diskectomy and Fusion, Care After This sheet gives you information about how to care for yourself after your procedure. Your health care provider may also give you more specific instructions. If you have problems or questions, contact your health care provider. What can I expect after the procedure? After the procedure, it is common to have: ? ? Neck pain. ? ? Discomfort when swallowing. ? ? Slight hoarseness. Follow these instructions at home: Medicines ? ? Take czhe-lsu-svpqvwj and prescription medicines only as told by your health care provider. ? ? If you were prescribed an antibiotic medicine, take it or use it as told by your health care provider. Do not stop using the antibiotic even if you start to feel better. ? ? Ask your health care provider if the medicine prescribed to you: ? ? Requires you to avoid driving or using heavy machinery. ? ? Can cause constipation. You may need to take actions to prevent or treat constipation, such as: ? ? Drink enough fluid to keep your urine pale yellow. ? ? Take lsvh-jdm-ozrydee or prescription medicines. ? ? Eat foods that are high in fiber, such as beans, whole grains, and fresh fruits and vegetables. ? ? Limit foods that are high in fat and processed sugars, such as fried and sweet foods. ? ? If you are taking blood thinners: ? ? Talk with your health care provider before you take any medicines that contain aspirin or NSAIDs, such as ibuprofen. These medicines increase your risk for dangerous bleeding. ? ? Take your medicine exactly as told, at the same time every day. ? ? Avoid activities that could cause injury or bruising, and follow instructions about how to prevent falls. ? ? Wear a medical alert bracelet or carry a card that lists what medicines you take. If you have a neck brace: ? ? Wear the brace as told by your health care provider. Remove it only as told by your health care provider. ? ? Loosen the brace if your arms/fingers tingle, become numb, or turn cold and blue. ? ? Keep the brace clean. ? ? If the brace is not waterproof: ? ? Do not let it get wet. ? ? Cover it with a watertight covering when you take a bath or shower. Incision care ? ? Follow instructions from your health care provider about how to take care of your incision. Make sure you: ? ? Wash your hands with soap and water for at least 20 seconds before and after you change your bandage (dressing). If soap and water are not available, use hand outreach clinician. ? ? Change your dressing as told by your health care provider. ? ? Leave stitches (sutures), skin glue, or adhesive strips in place. These skin closures may need to stay in place for 2 weeks or longer. If adhesive strip edges start to loosen and curl up, you may trim the loose edges. Do not remove adhesive strips completely unless your health care provider tells you to do that. ? ? Check your incision area every day for signs of infection. Check for: ? ? Redness, swelling, or more pain. ? ? Fluid or blood. ? ? Warmth. ? ? Pus or a bad smell. Managing pain, stiffness, and swelling If directed, put ice on the injured area. ? ? If you have a removable brace, remove it as told by your health care provider. ? ? Put ice in a plastic bag. ? ? Place a towel between your skin and the bag. ? ? Leave the ice on for 20 minutes, 2? 3 times a day. ? ? Remove the ice if your skin turns bright red. This is very important. If you cannot feel pain, heat, or cold, you have a greater risk of damage to the area. Activity ? ? Rest as told by your health care provider. ? ? Avoid sitting for a long time without moving. Get up to take short walks every 1? 2 hours. This is important to improve blood flow and breathing. Ask for help if you feel weak or unsteady. ? ? Do not lift anything that is heavier than 10 lb (4.5 kg), or the limit that you are told, until your health care provider says that it is safe. ? ? Do exercises as told by your health care provider. ? ? Do not take baths, swim, or use a hot tub until your health care provider approves. Ask your health care provider if you may take showers. You may only be allowed to take sponge baths. ? ? Return to your normal activities as told by your health care provider. Ask your health care provider what activities are safe for you. General instructions ? ? Do not use any products that contain nicotine or tobacco, such as cigarettes, e-cigarettes, and chewing tobacco. These can delay bone healing. If you need help quitting, ask your health care provider. ? ? Keep all follow-up visits. This is important. Follow-up visits include visits for physical therapy. Contact a health care provider if you have: ? ? A fever. ? ? Redness, swelling, or more pain around your incision. ? ? Fluid or blood coming from your incision. ? ? Pus or a bad smell coming from your incision. ? ? Pain that is not controlled by your pain medicine. ? ? Increasing hoarseness or trouble swallowing. Get help right away if you have: ? ? Severe pain. ? ? Sudden numbness or weakness in your arms. ? ? Warmth, tenderness, or swelling in your calf. ? ? Chest pain. ? ? Difficulty breathing. These symptoms may represent a serious problem that is an emergency. Do not wait to see if the symptoms will go away. Get medical help right away. Call your local emergency services (911 in the [place] Do not drive yourself to the hospital. Summary ? ? After the procedure, it is common to have neck pain, discomfort when swallowing, and slight hoarseness. ? ? Follow instructions from your health care provider about how to take care of your incision. ? ? Check your incision area every day for signs of infection. ? ? Return to your normal activities as told by your health care provider. Ask your health care provider what activities are safe for you. ? ? Contact a health care provider if you have signs of infection at your incision. This information is not intended to replace advice given to you by your health care provider. Make sure you discuss any questions you have with your health care provider. Document Revised: 07/25/2020 Document Reviewed: 07/25/2020 [employer] Patient Education ?? 2021 [employer]. Pharmacology General Anesthesia, Adult, Care After This sheet gives you information about how to care for yourself after your procedure. Your health care provider may also give you more specific instructions. If you have problems or questions, contact your health care provider. What can I expect after the procedure? After the procedure, the following side effects are common: ? ? Pain or discomfort at the IV site. ? ? Nausea. ? ? Vomiting. ? ? Sore throat. ? ? Trouble concentrating. ? ? Feeling cold or chills. ? ? Feeling weak or tired. ? ? Sleepiness and fatigue. ? ? Soreness and body aches. These side effects can affect parts of the body that were not involved in surgery. Follow these instructions at home: For the time period you were told by your health care provider: ? ? Rest. ? ? Do not participate in activities where you could fall or become injured. ? ? Do not drive or use machinery. ? ? Do not drink alcohol. ? ? Do not take sleeping pills or medicines that cause drowsiness. ? ? Do not make important decisions or sign legal documents. ? ? Do not take care of children on your own. Eating and drinking ? ? Follow any instructions from your health care provider about eating or drinking restrictions. ? ? When you feel hungry, start by eating small amounts of foods that are soft and easy to digest (bland), such as toast. Gradually return to your regular diet. ? ? Drink enough fluid to keep your urine pale yellow. ? ? If you vomit, rehydrate by drinking water, juice, or clear broth. General instructions ? ? If you have sleep apnea, surgery and certain medicines can increase your risk for breathing problems. Follow instructions from your health care provider about wearing your sleep device: ? ? Anytime you are sleeping, including during daytime naps. ? ? While taking prescription pain medicines, sleeping medicines, or medicines that make you drowsy. ? ? Have a responsible adult stay with you for the time you are told. It is important to have someone help care for you until you are awake and alert. ? ? Return to your normal activities as told by your health care provider. Ask your health care provider what activities are safe for you. ? ? Take botv-yuc-tfehjet and prescription medicines only as told by your health care provider. ? ? If you smoke, do not smoke without supervision. ? ? Keep all follow-up visits as told by your health care provider. This is important. Contact a health care provider if: ? ? You have nausea or vomiting that does not get better with medicine. ? ? You cannot eat or drink without vomiting. ? ? You have pain that does not get better with medicine. ? ? You are unable to pass urine. ? ? You develop a skin rash. ? ? You have a fever. ? ? You have redness around your IV site that gets worse. Get help right away if: ? ? You have difficulty breathing. ? ? You have chest pain. ? ? You have blood in your urine or stool, or you vomit blood. Summary ? ? After the procedure, it is common to have a sore throat or nausea. It is also common to feel tired. ? ? Have a responsible adult stay with you for the time you are told. It is important to have someone help care for you until you are awake and alert. ? ? When you feel hungry, start by eating small amounts of foods that are soft and easy to digest (bland), such as toast. Gradually return to your regular diet. ? ? Drink enough fluid to keep your urine pale yellow. ? ? Return to your normal activities as told by your health care provider. Ask your health care provider what activities are safe for you. This information is not intended to replace advice given to you by your health care provider. Make sure you discuss any questions you have with your health care provider. Document Revised: 12/20/2020 Document Reviewed: 07/19/2020 [employer] Patient Education ?? 2021 [employer] Extracted from: Title:Presurgical admission H&P Note Author:Raul Flood Date:06/19/23 Patient personally seen and evaluated. Findings as above. ?? Diagnosis:?? Cervicalgia, lumbar back pain, cervical spondylosis, cervical??foraminal??stenosis, cervical radiculopathy, musculoskeletal??pain, lumbar radiculopathy ?? Imaging:?? MRI??obtained at outside??hospital??01/13/2023 was personally reviewed??discussed with patient shunt??findings of multilevel cervical??spondylosis most??prominent??C4-5??C5-6 and C6-7 with??cwva-ne-rdvddlcq central stenosis??C5-6 and moderate??foraminal stenosis bilateral??C5-6??and C6-7 ?? MRI of lumbar??spine??obtained??on??04/15/2023 at outside??institution was also personally reviewed.?? Findings of??advanced degenerative disc??disease on the left-sided??L5-S1 with ckwb-me-xrblooge foraminal??stenosis??secondary to facet arthropathy as well as??degenerative??disc present. ??Inflammatory??degenerative disc??findings in vertebral??body??at L5 and S1??on the left??side.? Discussion:?? Interval??review of the patient's history,??physical exam, and radiographic??findings??was completed.?? Patient's??primary complaint??relates??to neck pain??with right??greater left upper extremity??radicular symptoms??primarily in the C5-6??distribution.?? Injection did provide??very??temporary benefit??lasting??less than 24 hours.?? This point he would like??to pursue??surgical??intervention which we??discussed in the form of??C5-7 ACDF.?? No guarantees??were made??and the risk of??surgery??were extensively??discussed.?? We also??reviewed his??lumbar??MRI which does show??degenerative??changes on left-sided??L5-S1 with some??foraminal??stenosis.?? But at??this point will continue conservative treatment??strategies??related to this. ? Recommendation:?? C5-7 ACDF ? Future Appointments Appointment Date:07/22/2023 12:45:00 PM Scheduled Provider: [facility] Procedure Appointment Type:Rad Appointment Date:07/22/2023 01:15:00 PM Scheduled Provider:Elliot Hernández MD Location:[facility] Appointment Type:Post-Op Future Scheduled Tests Radiology* [place] Image Documentation 03/18/23 * [place] Image Documentation 03/18/23 * XR Cervical Spine AP Lateral 07/22/23 Medications atorvastatin 40 mg, By mouth, QPM (every evening), # 30 tab, Refill(s) 0 Start Date: 06/08/23 Status: Ordered cyclobenzaprine 5 mg oral tablet 5 mg = 1 tab, By mouth, TID, PRN muscle spasms, # 90 tab, Refill(s) 0 Start Date: 06/17/23 Status: Ordered dilTIAZem 180 mg/24 hours oral capsule, extended release 300 mg, By mouth, Daily, Refill(s) 0 Start Date: 03/18/23 Status: Ordered Flonase 50 mcg/inh nasal spray 100 = mcg 2 spray, Both Nostrils, Daily, Refill(s) 0 Start Date: 03/18/23 Status: Ordered losartan 25 mg, By mouth, Daily, Refill(s) 0 Start Date: 03/18/23 Status: Ordered [place] 5 mg-325 mg oral tablet 1 tab, By mouth, Q4H, PRN for pain, Post op pain management, 42 tab, 0, 0, Substitution Permitted Start Date: 06/17/23 Status: Ordered Problem List Condition Confirmation Course Effective Dates Status [facility] Informant Carpal tunnel syndrome, bilateral Confirmed Active Ex-smoker Confirmed Active patient Tobacco use Confirmed Active Procedures Procedure Date Related Diagnosis Body Site Status ALLOGRAFT FOR SPINE SURGERY ONLY STRUCTURAL 06/19/23 Completed ANTERIOR INSTRUMENTATION 2-3 VERTEBRAL SEGMENTS 06/19/23 Completed ANTERIOR INSTRUMENTATION 2-3 VERTEBRAL SEGMENTS 06/19/23 Completed ARTHRD ANT INTERBODY DECOMPR ESS CERVICAL BELW C2 06/19/23 Completed ARTHRD ANT INTERBODY DECOMPR ESS CERVICAL BELW C2 06/19/23 Completed ARTHRD ANT INTERBODY DECOMPR ESS CERVICAL BELW C2 06/19/23 Completed ARTHRD ANT INTERDY CERVCL BE LW C2 EA ADDL NTRSPC 06/19/23 Completed AUTOGRAFT SPINE SURGERY LOCA L FROM SAME INCISION 06/19/23 Completed MICROSURG TQS REQ USE OPERAT ING MICROSCOPE 06/19/23 Completed Cervical/Thoracic Transforam inal PAM [id number] 1 03/31/23 Completed B CTR 5/25/21 Completed vasectomy 2004 Completed 1auto-populated from documented surgical case Vital Signs Most recent to oldest [Reference Range]: 1 2 Blood Pressure 135/80 (06/19/23 6:50 PM) Blood Pressure 134/84mmHg (06/19/23 4:19 PM) 138/86mmHg (06/19/23 3:50 PM) Height (inches) (Clinical) 67 in (06/19/23 9:10 AM) Weight (kg) (Clinical) 101.2 kg (06/19/23 9:10 AM) BMI (Clinical) 34.9 kg/m2 (06/19/23 9:10 AM) Scale Type Bed (06/19/23 9:10 AM) Social History Social History Type Response Smoking Status Former smoker; Smoke less tobacco use: Never; Has the patient smoked in the last 365 days, even once? Yes; Type: Chewing tobacco 1 entered on: 06/08/23 Sex Male 1Pt states at this time he is no longer using cigarettes or a vape, just chewing tobacco. 2Pt states at this time he no longer uses cigarettes, he is just consuming tobacco via chew Implantable Device List Procedure Provider Procedure Date Device Type Site Unknown Unknown 06/19/23 Unknown Spine - Cervic al Device Identifier Serial Number Lot or Batch Number Manufacturing Date Expiration Date Distinct Identification Code MRI Safety Implantable Status Assigning Authority Unknown [id number] Unknown Unknown 05/24/25 Unknown Unknown Active Unknown Unknown [id number] 17 Unknown 09/29/25 Unknown Unknown Active Unknown Unknown [id number] 24 Unknown 08/26/25 Unknown Unknown Active Unknown Unknown Unknown Unknown Unknown Unknown Unknown Unknown Active Unk nown Unknown Unknown Unknown Unknown Unknown Unknown Unknown Active Unk nown Hospital Discharge Instructions Patient Education 06/19/2023 14:13:24 Anterior Cervical Diskectomy and Fusion, Care After Anterior Cervical Diskectomy and Fusion, Care After This sheet gives you information about how to care for yourself after your procedure. Your health care provider may also give you more specific instructions. If you have problems or questions, contact your health care provider. What can I expect after the procedure? After the procedure, it is common to have: ??? Neck pain. ??? Discomfort when swallowing. ??? Slight hoarseness. Follow these instructions at home: Medicines ??? Take ujyv-poz-spbgdiq and prescription medicines only as told by your health care provider. ??? If you were prescribed an antibiotic medicine, take it or use it as told by your health care provider. Do not stop using the antibiotic even if you start to feel better. ??? Ask your health care provider if the medicine prescribed to you: ??? Requires you to avoid driving or using heavy machinery. ??? Can cause constipation. You may need to take actions to prevent or treat constipation, such as: ??? Drink enough fluid to keep your urine pale yellow. ??? Take shsk-aaf-yfjehjg or prescription medicines. ??? Eat foods that are high in fiber, such as beans, whole grains, and fresh fruits and vegetables. ??? Limit foods that are high in fat and processed sugars, such as fried and sweet foods. ??? If you are taking blood thinners: ??? Talk with your health care provider before you take any medicines that contain aspirin or NSAIDs, such as ibuprofen. These medicines increase your risk for dangerous bleeding. ??? Take your medicine exactly as told, at the same time every day. ??? Avoid activities that could cause injury or bruising, and follow instructions about how to prevent falls. ??? Wear a medical alert bracelet or carry a card that lists what medicines you take. If you have a neck brace: ??? Wear the brace as told by your health care provider. Remove it only as told by your health careprovider. ??? Loosen the brace if your arms/fingers tingle, become numb, or turn cold and blue. ??? Keep the brace clean. ??? If the brace is not waterproof: ??? Do not let it get wet. ??? Cover it with a watertight covering when you take a bath or shower. Incision care ??? Follow instructions from your health care provider about how to take care of your incision. Make sure you: ??? Wash your hands with soap and water for at least 20 seconds before and after you change your bandage (dressing). If soap and water are not available, use hand outreach clinician. ??? Change your dressing as told by your health care provider. ??? Leave stitches (sutures), skin glue, or adhesive strips in place. These skin closures may need to stay in place for 2 weeks or longer. If adhesive strip edges start to loosen and curl up, you maytrim the loose edges. Do not remove adhesive strips completely unless your health care provider tells you to do that. ??? Check your incision area every day for signs of infection. Check for: ??? Redness, swelling, or more pain. ??? Fluid or blood. ??? Warmth. ??? Pus or a bad smell. Managing pain, stiffness, and swelling If directed, put ice on the injured area. ??? If you have a removable brace, remove it as told by your health care provider. ??? Put ice in a plastic bag. ??? Place a towel between your skin and the bag. ??? Leave the ice on for 20 minutes, 2???3 times a day. ??? Remove the ice if your skin turns bright red. This is very important. If you cannot feel pain, heat, or cold, you have a greater risk of damage to the area. Activity ??? Rest as told by your health care provider. ??? Avoid sitting for a long time without moving. Get up to take short walks every 1???2 hours. This is important to improve blood flow and breathing. Ask for help if you feel weak or unsteady. ??? Do not lift anything that is heavier than 10 lb (4.5 kg), or the limit that you are told, untilyour health care provider says that it is safe. ??? Do exercises as told by your health care provider. ??? Do not take baths, swim, or use a hot tub until your health care provider approves. Ask your health care provider if you may take showers. You may only be allowed to take sponge baths. ??? Return to your normal activities as told by your health care provider. Ask your health care provider what activities are safe for you. General instructions ??? Do not use any products that contain nicotine or tobacco, such as cigarettes, e-cigarettes, andchewing tobacco. These can delay bone healing. If you need help quitting, ask your health care provider. ??? Keep all follow-up visits. This is important. Follow-up visits include visits for physical therapy. Contact a health care provider if you have: ??? A fever. ??? Redness, swelling, or more pain around your incision. ??? Fluid or blood coming from your incision. ??? Pus or a bad smell coming from your incision. ??? Pain that is not controlled by your pain medicine. ??? Increasing hoarseness or trouble swallowing. Get help right away if you have: ??? Severe pain. ??? Sudden numbness or weakness in your arms. ??? Warmth, tenderness, or swelling in your calf. ??? Chest pain. ??? Difficulty breathing. These symptoms may represent a serious problem that is an emergency. Do not wait to see if the symptoms will go away. Get medical help right away. Call your local emergency services (911 in the [place] Do not drive yourself to the hospital. Summary ??? After the procedure, it is common to have neck pain, discomfort when swallowing, and slight hoarseness. ??? Follow instructions from your health care provider about how to take care of your incision. ??? Check your incision area every day for signs of infection. ??? Return to your normal activities as told by your health care provider. Ask your health care provider what activities are safe for you. ??? Contact a health care provider if you have signs of infection at your incision. This information is not intended to replace advice given to you by your health care provider. Make sure you discuss any questions you have with your health care provider. Document Revised: 07/25/2020 Document Reviewed: 07/25/2020 [place] Patient Education ?? 2021 [employer]. 06/19/2023 14:13:24 General Anesthesia, Adult, Care After General Anesthesia, Adult, Care After This sheet gives you information about how to care for yourself after your procedure. Your health care provider may also give you more specific instructions. If you have problems or questions, contact your health care provider. What can I expect after the procedure? After the procedure, the following side effects are common: ??? Pain or discomfort at the IV site. ??? Nausea. ??? Vomiting. ??? Sore throat. ??? Trouble concentrating. ??? Feeling cold or chills. ??? Feeling weak or tired. ??? Sleepiness and fatigue. ??? Soreness and body aches. These side effects can affect parts of the body that were not involvedin surgery. Follow these instructions at home: For the time period you were told by your health care provider: ??? Rest. ??? Do not participate in activities where you could fall or become injured. ??? Do not drive or use machinery. ??? Do not drink alcohol. ??? Do not take sleeping pills or medicines that cause drowsiness. ??? Do not make important decisions or sign legal documents. ??? Do not take care of children on your own. Eating and drinking ??? Follow any instructions from your health care provider about eating or drinking restrictions. ??? When you feel hungry, start by eating small amounts of foods that are soft and easy to digest (bland), such as toast. Gradually return to your regular diet. ??? Drink enough fluid to keep your urine pale yellow. ??? If you vomit, rehydrate by drinking water, juice, or clear broth. General instructions ??? If you have sleep apnea, surgery and certain medicines can increase your risk for breathing problems. Follow instructions from your health care provider about wearing your sleep device: ??? Anytime you are sleeping, including during daytime naps. ??? While taking prescription pain medicines, sleeping medicines, or medicines that make you drowsy. ??? Have a responsible adult stay with you for the time you are told. It is important to have someone help care for you until you are awake and alert. ??? Return to your normal activities as told by your health care provider. Ask your health care provider what activities are safe for you. ??? Take vpvo-ohj-kafdlon and prescription medicines only as told by your health care provider. ??? If you smoke, do not smoke without supervision. ??? Keep all follow-up visits as told by your health care provider. This is important. Contact a health care provider if: ??? You have nausea or vomiting that does not get better with medicine. ??? You cannot eat or drink without vomiting. ??? You have pain that does not get better with medicine. ??? You are unable to pass urine. ??? You develop a skin rash. ??? You have a fever. ??? You have redness around your IV site that gets worse. Get help right away if: ??? You have difficulty breathing. ??? You have chest pain. ??? You have blood in your urine or stool, or you vomit blood. Summary ??? After the procedure, it is common to have a sore throat or nausea. It is also common to feel tired. ??? Have a responsible adult stay with you for the time you are told. It is important to have someone help care for you until you are awake and alert. ??? When you feel hungry, start by eating small amounts of foods that are soft and easy to digest (bland), such as toast. Gradually return to your regular diet. ??? Drink enough fluid to keep your urine pale yellow. ??? Return to your normal activities as told by your health care provider. Ask your health care provider what activities are safe for you. This information is not intended to replace advice given to you by your health care provider. Make sure you discuss any questions you have with your health care provider. Document Revised: 12/20/2020 Document Reviewed: 07/19/2020 [facility] Patient Education ?? 2021 [employer]. 06/19/2023 14:13:24 How to Prevent Constipation After Surgery How to Prevent Constipation After Surgery Constipation is a common problem after surgery. Many things can make constipation more likely aftera surgery, including: ??? Certain medicines, especially numbing medicines (anesthetics) and very strong pain medicines called opioids. ??? Feeling stressed because of the surgery. ??? Eating different foods than normal. ??? Being less active. Symptoms of constipation include: ??? Having fewer than three bowel movements a week. ??? Straining to have a bowel movement. ??? Having hard, dry, or vbugnc-eymy-bzacmp stools (feces). ??? Discomfort in the lower abdomen, such as cramps or bloating. ??? Not feeling relief after having a bowel movement. ??? Nausea and vomiting. You can take steps to help prevent constipation after surgery. Follow these instructions at home: Eating and drinking ??? Eat foods that have a lot of fiber in them, such as beans, bran, whole grains, and fresh fruitsand vegetables. ??? Limit foods that are high in fat and processed sugars, such as fried or sweet foods. These include thai fries, hamburgers, cookies, and candy. ??? Take a fiber supplement as told by your health care provider. If you are not taking a fiber supplement and you think you are not getting enough fiber from foods, talk to your health care providerabout adding a fiber supplement to your diet. ??? Drink enough fluid to keep your urine pale yellow. ??? Drink clear fluids, especially water. Avoid drinking alcohol, caffeine, and soda. These can make constipation worse. Activity ??? After surgery, return to your normal activities slowly, or when your health care provider says it is okay. ??? Start walking as soon as you can. Try to go a little farther each day. ??? Once your health care provider approves, do some sort of regular exercise. This helps prevent constipation. Bowel movements ??? Go to the restroom when you have the urge to go. Do not hold it in. ??? Try drinking something hot to get a bowel movement started. ??? Keep track of how often you use the restroom. Medicines ??? Take geqk-trf-krrjnbh and prescription medicines only as told by your health care provider. ??? Talk to your health care provider about medicines that may help prevent constipation, particularly if you have a history of constipation. Your health care provider may suggest a stool softener, laxative, or fiber supplement. ??? Do not take any medicines without talking to your health care provider first. Contact a health care provider if: ??? You used stool softeners or laxatives and still have not had a bowel movement within 24???48 hours after using them. ??? You have not had a bowel movement in 3 days. ??? You have a fever. Get help right away if you have: ??? Constipation that lasts for more than 4 days or if your symptoms get worse. ??? Bright red blood in your stool. ??? Pain in the abdomen or rectum. ??? Very bad cramping. ??? Thin, pencil-like stools. ??? Unexplained weight loss. Summary ??? Constipation is a common problem after surgery. Many things can make constipation more likely after a surgery, including certain medicines, eating different foods than normal, and being less active. ??? Symptoms of constipation include having fewer than three bowel movements a week, straining to have a bowel movement, and cramps or bloating in the lower abdomen. ??? To help prevent constipation, you should eat foods that are high in fiber, drink plenty of fluids, and get regular physical activity. ??? Your health care provider may suggest medicines, such as stool softeners or laxatives, to help prevent constipation. This information is not intended to replace advice given to you by your health care provider. Make sure you discuss any questions you have with your health care provider. Document Revised: 02/22/2020 Document Reviewed: 02/22/2020 [employer] Patient Education ?? 2021 [employer]. Follow Up Care 06/10/2023 23:32:54 With:Elliot Hernández Address: [employer] [facility] [address] [place] [address]- Business (1) When:07/22/2023 12:15:00 Comments:Post Operative Appointments: Please check in at the [facility] registration desk on 07/22/2023 at 12:[address] [facility] Entrance. Please go to the radiology department to get your x-rays done prior to coming to the 7th floor for your appointment at 1:[address] Hernández. Please do not wear clothing with metal or excess jewelry on the day of your appointment as this will interfere with the X-ray. Please call us at [phone] if you have any questions regarding this. Progress note * Elliot Hernández MD: PERFORM, SIGN, VERIFY Event Display: Progress Notes Authored Date: [id number] Patient: OSMAN LANDIN Age: 48 years Sex: Male : 1975 Associated Diagnoses: None Author: Elliot Hernández MD Postoperative Information Procedure: C5-7 ACDF Date/ Time: 06/19/2023 13:43:00 Preoperative Diagnosis: Cervical radiculopathy Cervical spondylosis with stenosis Cervicalgia. Performed by: Elliot Hernández MD. Chemist Instrumentation: Raul Hicks. Estimated Blood Loss: 15 ml. Complications: None. Notes: Final counts regarding surgical instruments, sponges, and needles were correct times two.. Anesthesia type: General. Implants: Medtronic Drains: none Anesth: GETA Disposition: Extubated, stable to PACU Postoperative Diagnosis: Same as preoperative diagnosis. Performed by: Elliot Hernández MD. Findings: See operative report. Electronically signed by:Elilot Hernández MD 06/19/23 13:44 Surgical operation note * Elliot Hernández MD: PERFORM, SIGN, VERIFY Event Display: Operative Report Authored Date: [id number] Patient: OSMAN LANDIN Age: 48 years Sex: Male : 1975 Associated Diagnoses: None Author: Elliot Hernández MD NEUROSURGERY OPERATIVE REPORT DATE OF OPERATIVE PROCEDURE: 06/19/2023 PREOPERATIVE DIAGNOSES: 1. Cervical radiculopathy. 2. Cervical spinal stenosis. 3. Cervical spondylosis. 4. Progressive cervicalgia. POSTOPERATIVE DIAGNOSES: 1. Cervical radiculopathy. 2. Cervical spinal stenosis. 3. Cervical spondylosis. 4. Progressive cervicalgia. PROCEDURE: 1. C5-C6 and C6-C7 anterior cervical diskectomy and fusion. 2. C5-C6 and C6-C7 anterior cervical diskectomy for interbody arthrodesis. 3. C5-C6 and C6-C7 diskectomy for central and biforaminal neural decompression. 4. C5 to C7 anterior cervical fixation using plate and screws. SURGEON: Elliot Hernández M.D. CONVERTIBLE SOFA BEDSPRING TESTER: TARUN Gray FINDINGS: See operative report. ESTIMATED BLOOD LOSS: 15 cc. COMPLICATIONS: None. IMPLANTS: Medtronic. DRAINS: None. ANESTHESIA: General endotracheal. DISPOSITION: Extubated stable to PACU. INDICATION OF PROCEDURE: The patient is a 48-year-old gentleman who was referred to me in the outpatient setting secondary to progressive radicular symptoms with imaging showing extensive spondylosiscausing central and foraminal stenosis at C5-C6 and C6-C7. Due to the progression of his clinical symptoms and failure of nonoperative care, the patient wished to proceed with surgical management, which we extensively discussed the risk of surgery including but not limited to bleeding, infection, nerve root injury, cerebral spinal fluid leak, failure for symptom resolution, spinal cord injury, nerve root injury, need to return to the OR either immediately or remotely secondary to hematoma, infection or other surgical concerns, temporary or permanent hoarseness, temporary or permanent swallowing difficulties, autonomic nervous system dysfunction, vascular injury, hardware failure, nonunion or nonfusion necessitating further surgery, adjacent level disease. Also discussed with him the risk of continuing nicotine usage which could prohibit appropriate healing. Knowing these risks as well as others, the patient wished to proceed. DESCRIPTION OF PROCEDURE: The patient brought to the operating room, intubated by the anesthesia team. He was then placed in a supine position. All pressure points padded extensively. SCDs were placed for DVT prevention. The right anterior cervical region was marked with the guidance of fluoroscopy. This area was then prepped and draped in the standard sterile fashion. A formal time-out was called, identifying the patient, site of procedure and procedure to be performed. Preoperative antibiotics given. Local anesthetic was infiltrated in the skin. A 10 blade scalpel was then used to incise the skin. Dissection was carried down through the platysma in an avascular plane medial to the sternocl eidomastoid and carotid sheath contents, lateral to the tracheoesophageal complex to the prevertebral fascia exposing the C5-C6 and C6-C7 disk spaces, which were confirmed with fluoroscopy. Self-retaining retractors were set into place along the longus colli at C5-6. The disk was opened with a 15 blade scalpel. Combination of curets, Kerrisons and a high-speed drill were then used to remove the disk space contents, cartilaginous endplates and the anterior and posterior osteophytes. The posterior longitudinal ligament was then opened and central and biforaminal neural decompression was then accomplished with a combination of Kerrisons. Once neural decompression had been accomplished, the trial sizers were placed within the interbody space. Ultimately a 7 x 14 mm Cornerstone LASR graft impregnated with 0.5 cc of [place] paste was placed within the interbody space for arthrodesis. I then moved the retractors caudally to the C6-7 level opening the disk space with a 15 blade scalpel. Againusing combination of curets, Kerrisons and the high-speed drill, removal of extensive diskectomy was then performed as well as removal of the cartilaginous endplates. Anterior and posterior osteophytes were removed. Posterior longitudinal ligament was opened and removed with a combination of Kerrisons decompressing the central and biforaminal neural windows. Trial sizers were again placed and ultimately a second 7 x 14 mm Cornerstone LASR graft impregnated with 0.5 cc of [place] paste was placed within the interbody space for arthrodesis. I then affixed a 37.5 mm Vision Elite anterior cervical plate on the anterior aspect of the spine spanning C5 to C7 using 16 mm self-drilling screws at all 6 screw entry sites. The wound was then copiously irrigated with antibiotic irrigation. Meticulous hemostasis obtained with bipolar electrocautery as well as Floseal. Final AP and lateral x-rays were obtained showing satisfactory placement of all hardware. The wound was then closed in a layered fashion with interrupted buried 3-0 Vicryl sutures at multiple levels followed by Dermabond for the skin and a sterile dressing. All sponge, instrument and needle counts were correct following this procedure x2. No complications were noted. TARUN Gray, was present and assisted in all aspects of this case. The patient was then returned to anesthesia, extubated, taken to PACU in stable condition. Elliot Hernández MD Electronically signed by:Elliot Hernández MD 06/19/23 13:46 History and physical note * Raul Hicks: PERFORM Event Display: History and Physicals Authored Date: [id number] Chief Complaint FUSION ANTERIOR CERVICAL WITH Care Team Primary Care Physician??- Admitting Physician - Elliot Hernández MD Attending Physician - Elliot Hernández MD Arrival Date/Time??- 06/19/2023 08:01:00 History of Present Illness Mr. Osman Landin returns today s/p C5-[address] Abrams on 03/31/23 ?? Since last seen, Osman reports that he derived no more than 24 hours of relief following his injection. The pain returned to the same severity as before, affecting both upper extremities. He is not wanting to undergo additional injections due to poor performance and would like to move forward with surgical intervention. Review of Systems General Statement:Denies significant change in weight, fever, chills & fatigue Eye Statement:Denies changes in vision. ENT Statement:Denies changes in hearing, sinus headaches or ENT symptoms. Cardiovascular Statement:Denies chest pain, palpitations, and edema Respiratory Statement:Denies cough, wheezing, and dyspnea GI Statement:Denies nausea, vomiting, food intolerance, abdominal pain, & change in bowel pattern Statement:Denies dysuria, urinary frequency, urinary hesitancy & urethral discharge Musculoskeletal Statement:Denies muscle pain, joint pain, back pain & weakness Skin Statement:Denies rashes, lesions & pruritus Neurologic Statement:Denies memory problems, vertigo, headaches, and seizures Neurologic Admits to:Headache,Paresthesia Psychiatric Statement:Denies symptoms of anxiety, depression, & insomnia Allergy/Immunology Statement:All Allergy/Immunology negative Sleep Statement:Denies sleep problems ?? Physical Exam ?Vitals & Measurements ?HR:??80?? BP:??134/95?HT:??67??in?? WT:??224??lb?? WT:??101.82??kg?? BMI:??35.1? Appearance: Well-developed, well-nourished, in no distress. ? Heart: Except as noted above, regular rate and rhythm. ? Carotids: Except as noted above, normal amplitude without bruits. ? Peripheral Vascular: Except as noted above, extremities are without edema, normal radial and pedal pulses. ? Lungs: Except as noted above, clear to auscultation. ? Abdomen: Except as noted above, soft and non-tender. ? Lymphatics: Except as noted above, palpation of the lymph nodes reveals no lymphadenopathy. ? Skin: Except as noted above, no rashes, ulcerations, or lesions noted about the head and neck and trunk or extremities. ? Musculoskeletal: Except as noted above, paraspinous muscles are symmetric and normal in tone without spasm; range of motion of the cervical and lumbar spine is normal, Spurling's maneuver is negative, straight leg raise is tolerated to 80 degrees, femoral stretch is negative. Gait and station are normal. Bilateral upper and lower extremities on inspection are symmetric without tenderness; no masses. There is normal range of motion, no joint instability or laxity; upper and lower extremity strength is normal in tone. ? Motor Examination: Except as noted above ? Deltoid:?5/5?Hip flexors:?5/5 Biceps:?5/5?Quadriceps:?5/5 Triceps:?5/5?Hamstring:?5/5 Wrist extensors:? 5/5?Toe extensors:?5/5 Hand intrinsics:? 5/5?Ant. tibialis:?5/5 ?Gastroc:?5/5 ? Sensory Exam: Except as noted above, light touch, pinprick, and proprioception are normal. ? Reflex Exam: Except as noted above, deep tendon reflexes in the upper and lower extremities are normal; there is no clonus, no Babinski sign, and no Ankush sign. ? Neurologic and Mental Status: Except as noted above, the patient is oriented to time, person, and place. Mood and affect are appropriate. Coordination in upper and lower extremities is normal with fine motor movements appropriate. Assessment/Plan Patient personally seen and evaluated. Findings as above. ?? Diagnosis:?? Cervicalgia, lumbar back pain, cervical spondylosis, cervical??foraminal??stenosis,cervical radiculopathy, musculoskeletal??pain, lumbar radiculopathy ?? Imaging:?? MRI??obtained at outside??hospital??01/13/2023 was personally reviewed??discussed with patient shunt??findings of multilevel cervical??spondylosis most??prominent??C4-5??C5-6 and C6-7 with? ?pgiy-vk-apjirjtk central stenosis??C5-6 and moderate??foraminal stenosis bilateral??C5-6??and C6-7 ?? MRI of lumbar??spine??obtained??on??04/15/2023 at outside??institution was also personally reviewed.?? Findings of??advanced degenerative disc??disease on the left-sided??L5-S1 with cqqd-[id number]-pubqepuu foraminal??stenosis??secondary to facet arthropathy as well as??degenerative??disc present. ??Inflammatory??degenerative disc??findings in vertebral??body??at L5 and S1??on the left??side.? Discussion:?? Interval??review of the patient's history,??physical exam, and radiographic??findings??was completed.?? Patient's??primary complaint??relates??to neck pain??with right??greater left upper extremity??radicular symptoms??primarily in the C5-6??distribution.?? Injection did provide??very??temporary benefit??lasting??less than 24 hours.?? This point he would like??to pursue??surgical??intervention which we??discussed in the form of??C5-7 ACDF.?? No guarantees??were made??and the risk of??surgery??were extensively??discussed.?? We also??reviewed his??lumbar??MRI which does show??degenerative??changes on left-sided??L5-S1 with some??foraminal??stenosis.?? But at??this point will continue conservative treatment??strategies??related to this. ? Recommendation:?? C5-7 ACDF Problem List/Past Medical History Ongoing Carpal tunnel syndrome, bilateral Ex-smoker Tobacco use Historical No qualifying data Procedure/Surgical History ???Cervical/Thoracic Transforaminal PAM 53484 (03/31/2023)???B [facility] (09/11/2020)???vasectomy (2004) Medications Home Medications (6) Active atorvastatin??40 mg, By mouth, QPM (every evening) cyclobenzaprine 5 mg oral tablet??5 mg = 1 tab, PRN, By mouth, TID dilTIAZem 180 mg/24 hours oral capsule, extended release??300 mg, By mouth, Daily Flonase 50 mcg/inh nasal spray??100 mcg = 2 spray, Both Nostrils, Daily losartan??25 mg, By mouth, Daily [place] 5 mg-325 mg oral tablet??1 tab, PRN, By mouth, Q4H Allergies amoxicillin??( i think it caused a rash ) Social History Social History Alcohol ??Current, 1-2 times per week Substance Abuse ??Denies Tobacco ??Smoking Status: Former smoker. ??Smokeless tobacco use: Never. ?Type: Chewing tobacco.;??Comment(s):??Pt states at this time he is no longer using cigarettes or a vape, just chewing tobacco. ??Pt states at this time he no longer uses cigarettes, he is just consuming tobacco via chew Family History Family history is unknown Lab Results No qualifying data available Diagnostic Results No clinical data available for specified time frame. Electronically signed by:Raul Hicks 06/19/23 10:48 Electronically cosigned by: Elliot Hernández MD 06/19/23 11:01 Patient Care team information Care Team Related Persons Name: FADY LANDIN Address: home [address] [place] [phone] [facility] Name: FADY LANDIN Address: home [address] [phone] [facility] Address: mailing [address] [place] [phone] [place]
[2023-12-09] VITALS (10 sets, daily range): BP systolic 136–172; BP diastolic 87–118; PULSE 61–90; RESP 16–18; TEMP 36.1–36.5; O2SAT 93–97; BMI 34.2
[2023-12-09] MEDS: acetaminophen 1,000 MG/100 ML PIGGYBACK 400 MG IV (06:31)
[2023-12-09] MEDS: sodium chloride 0.9% 1,000 ML 30 ML IV (06:32)
[2023-12-09] MEDS: gabapentin 300 mg Capsule PO (06:32)
--- NOTE | 2023-12-09 06:48 | SUR.PHASEI ---
Time out completed at bedside in preop by dr cristina. Nerve block was performed to patient's left lower extremity. Patient tolerated well.
--- NOTE | 2023-12-09 06:50 | P.HPUD_ITS ---
Surgery/Procedure H&P Update DATE OF PROCEDURE: December 09, 2023 DATE H&P PERFORMED: 11/26/23 H&P UPDATE INFORMATION: I have reviewed H&P completed within last 30 days, I have examined patient prior to procedure, No changes to prior documentation and H&P is in [facility] EMR on date indicated PREOP DIAGNOSIS: Osteochondral defect left ankle PLANNED PROCEDURE: Operation Date: 12/09/23 07:00 Proposed Procedures p Ankle Arthroscopy with OCD repair(Left) - Melvin Polanco DPM
--- NOTE | 2023-12-09 07:01 | ANES.PREANE2 ---
Pre-Anesthetic Assessment Height/Weight: Height 1.73 m Weight 102.058 kg Temp Pulse Resp BP Pulse Ox O2 Del Method 97.7 F 74 18 143/99 95 Room Air 12/09/23 06:17 12/09/23 06:17 12/09/23 06:17 12/09/23 06:17 12/09/23 06:17 12/09/23 06:19 Preop Diagnosis: Osteochondral defect left ankle Operation Date: 12/09/23 07:00 Proposed Procedures p Ankle Arthroscopy with OCD repair(Left) - Melvin Polanco DPM Familial anesthetic complications: None Was Beta Beth taken within 24 hours: N/A Was Clonidine taken within 24 hours: N/A Last intake: Intake Last Liquid Date 12/08/23 Last Liquid Time 20:00 Last Solid Date 12/08/23 Last Solid Time 17:00 Social Tobacco and No alcohol Exam alert, oriented x 3, clear to auscultation bilaterally and regular rate & rhythm Airway Mallampati: Class II Dentition: full CV/HEM Hypertension GI Gastroesophageal Reflux Disease Metabolic Hyperlipidemia Anesthetic Plan ASA status: 2 Anesthesia: General and Regional (specify below) Risk of > 500 ml blood loss (7ml/kg in children): No Medications/Allergies Home Medications Medication Instructions Recorded Confirmed Last Taken Type diclofenac sodium 50 mg 50 mg PO Q12H #20 tabs 11/08/23 12/08/23 12/08/23 Rx tablet,delayed release crutches #1 ea 11/26/23 11/26/23 Unknown Rx atorvastatin 20 mg PO DAILY 12/08/23 12/08/23 12/08/23 History diltiazem HCl 300 mg PO DAILY 12/08/23 12/09/23 12/09/23 05:00 History famotidine 20 mg PO DAILY 12/08/23 12/08/23 12/08/23 History losartan 50 mg PO DAILY 12/08/23 12/08/23 12/08/23 History omeprazole 40 mg PO DAILY 12/08/23 12/08/23 12/08/23 History hydrocodone 5 mg-acetaminophen 325 1 tab PO Q6H PRN pain #20 tabs 12/09/23 Unknown Rx mg tablet Allergies Allergy/AdvReac Type Severity Reaction Status Date / Time amoxicillin Allergy Unknown Verified 12/09/23 06:12 Current Medications Generic Name Dose Route Start Last Admin Trade Name Freq PRN Reason Stop Dose Admin Sodium Chloride 1,000 mls @ 30 mls/hr 12/09/23 06:15 12/09/23 06:32 Sodium Chloride 0.9% IV 12/10/23 06:14 30 mls/hr .Q24H TIM Administration PFSH Anesthesia Social History Smoking and tobacco/nicotine status: never used tobacco/nicotine Data Anesthesia Cardiac Studies: No Data to Display
--- NOTE | 2023-12-09 07:02 | ANES.PROC ---
Anesthesia Procedures Procedure/Date: 12/09/23 Nerve Block ^: Nerve Block 1: Main Anesthesia: general anesthesia Time Out Performed: Yes Consent: requested by attending/covering physician, from patient, from other, risks and benefits reviewed and patient agrees to proceed Nerve block location: popliteal (L) Anesthesia monitors applied: pulse oximetry, EKG, BP cuff and oxygen Nerve block position: supine Anesthetic Used: ropivicaine 0.5% (30 ml) and with decadron (4 mg) Ultrasound used to: recognize landmarks Nerve Stimulator Used?: No Interscalene/Femoral BLK: 4 stimuplex 21 g needle used for position and inplane approach, visualize local anesthetic spread and no vascular puncture identified Injection: neg aspiration of heme Patient Tolerated Procedure: well Complications: none
[2023-12-09] MEDS: clindamycin 600 MG/50 ML PREMIX 100 MG IV (07:11)
--- NOTE | 2023-12-09 08:17 | P.BOP_ITS ---
Date of procedure: 12/09/2023 Surgeon name: Yenny LovelacePWood Service Learning Coordinator(s) name(s): Ian Procedure(s) performed: Left ankle arthroscopy with synovectomy Description of findings: Significant synovitis within left ankle joint most notably about the lateral ankle ligaments Estimated blood loss: 5 cc Tourniquet time: 32 minutes Specimen(s) removed: none Post-operative diagnosis: Left ankle synovitis
--- NOTE | 2023-12-09 08:20 | P.OP_ITS ---
Operative Report Date of procedure: December 09, 2023 Surgeon: Melvin Polanco DPM Procedure: Date of procedure: 12/09/2023 Pre-op diagnosis: Left ankle pain, synovitis Post-op diagnosis: Same Post-op findings: Significant synovitis within left ankle joint specifically surrounding lateral ankle ligaments Procedure done: Left ankle arthroscopy with synovectomy CPT 74302 Implants: None Specimens removed: None Surgeon: Dr. Melvin Polanco DPM Paper Machine Supervisor: Ian Estimated blood loss: 5 cc Tourniquet time: 32 minutes Complications: None Patient is a 48-year-old male that has a history of left ankle pain after modified Brostr?m repair with internal brace. Due to persistent pain and lack of improvement with conservative therapy we have decided to proceed with ankle arthroscopy which will be diagnostic and therapeutic. The patient has had the aforementioned chief complaint for some time. Conservative treatment measures have been attempted and the patient has opted for surgical intervention at this time. A lengthy discussion regarding the procedure, including risks and complications has been had with the patient and is noted in the recent clinic note. Written and verbal consent have been obtained. All patient questions have been answered to the patient?s satisfaction. No written or verbal guarantees have been given or implied. The patient has been NPO since midnight. The history has been reviewed and the history and physical is current. The signed consent was confirmed and placed in the patient chart. Patient imaging has been reviewed and is consistent with the diagnosis. Under mild sedation, the patient was brought into the operating room and placed on the table in the supine position. IV antibiotics were given by the anesthesia team as preoperative surgical prophylaxis. General sedation was then performed by the anesthesiateam. A pneumatic tourniquet was then placed about the left thigh. The patient received a popliteal block by the anesthesia department. The operative extremity was then prepped and draped in the usual fashion. The extremity was then elevated and exsanguinated before the tourniquet was inflated to 325 mmHg. After inflation, the following procedure was then performed. Attention was directed to the left ankle. An 18-gauge needle was inserted into the anteromedial portion of the ankle joint. 20 cc of sterile saline was used to insufflate the joint. Next, an 11 blade was used to make an incision over the anteromedial portion of the left ankle. Blunt dissection was carried down to the level of the ankle joint capsule using a mosquito hemostat. The hemostat was used to ozuna the ankle joint capsule before trocar and cannula were inserted into the ankle joint. Trocar was removed and the arthroscope was inserted into the cannula. Ankle joint was inspected in standard fashion. No visible osteochondral defect was noted. Significant synovitis was noted within the ankle joint, specifically lateral portion of the ankle joint overlying the lateral ankle ligaments. Under direct visualization using arthroscopy, the anterolateral portal was established using a #11 blade and blunt hemostat. The 2.0 shaver from [employer] was inserted into the anterolateral portal. Care was taken to debride synovitis within the ankle joint without incident. The camera and shaver were then removed from the ankle and inserted into the opposite portals. At this point debridement continued within the ankle joint to remove synovitis visible. Again, no osteochondral defect was noted. The medial and lateral gutters were also noted to be clear. No intra-articular loose bodies were visualized. The shaver and camera was removed from the ankle joint and attention was directed to closure. Portals were closed using 4-0 nylon in horizontal mattress fashion. Incision site was dressed with Xeroform, 4 x 4 gauze, Kerlix, Jimbo. Patient was placed in a cam boot. Tourniquet was let down good hyperemic response was noted all digits of the left foot. The patient tolerated the procedure and anesthesia well and without complication. The patient was transported from the operating room to the recovery room with vital signs stable and vascular status intact to all digits of the left foot. The patient was given both written and verbal instructions to remain nonweightbearing to the operative extremity, to keep dressings/splint clean, dry and intact and to take pain medication as directed. The patient will follow-up in the outpatient setting at their scheduled appointment. The patient was discharged with my personal number and was instructed to call if any questions or issues should arise. They were discharged home once anesthesia criteria was met.
[2023-12-09] MEDS: HYDROcodone-acetaminophen 5-325 mg Tablet 1 TAB PO (09:04)
--- NOTE | 2023-12-09 09:30 | ANE.PACU2 ---
Inpatient post-anesthesia follow up: Airway intact: Yes Vital signs: Temperature 97.7 F Pulse Rate 61 Respiratory Rate 17 Blood Pressure 146/92 Pulse Oximetry 96 Oxygen Delivery Me thod Room Air Oxygen Flow Rate Fraction of Inspir ed Oxygen Hydration adequate: Yes Nausea and vomiting: No Pain level: 1 Mental status: Baseline
== END 2023-12-09 09:30 | disposition home or self-care (01) ==
PROVIDERS: PCP Family Medicine; Visit Provider Podiatrist Foot & Ankle Surgery
PROC: (CPT 29897; principal; 2023-12-09 07:00)
DX: M65.872 Other synovitis and tenosynovitis, left ankle and foot (principal); I10 Essential (primary) hypertension; K21.9 Gastro-esophageal reflux disease without esophagitis; E78.5 Hyperlipidemia, unspecified; M25.372 Other instability, left ankle
CPT/HCPCS: 29897; J0131; J1100; J2405; J2704; J2795; J3010; J3490; J7030

== ENCOUNTER → 2023-12-23 12:42 | Outpatient (BNVA) | payer OTHER, SELFPAY | PROVIDERS: PCP Family Medicine; Visit Provider Podiatrist Foot & Ankle Surgery | DX: M95.8 Other specified acquired deformities of musculoskeletal system (principal); Z98.890 Other specified postprocedural states; M25.372 Other instability, left ankle | CPT/HCPCS: 99024 ==

== ENCOUNTER → 2024-01-06 13:20 | Outpatient (BNVA) | payer OTHER, SELFPAY | PROVIDERS: PCP Family Medicine; Visit Provider Podiatrist Foot & Ankle Surgery | DX: M79.2 Neuralgia and neuritis, unspecified (principal); M95.8 Other specified acquired deformities of musculoskeletal system; Z98.890 Other specified postprocedural states | CPT/HCPCS: 99024 ==

== ENCOUNTER 2024-01-20 08:36 | Outpatient (RCR) | payer OTHER, SELFPAY | END 2024-02-18 23:59 | disposition home or self-care (01) | LOC: SPT 08:36 | PROVIDERS: Visit Provider Podiatrist Foot & Ankle Surgery | DX: M25.572 Pain in left ankle and joints of left foot (principal); M62.81 Muscle weakness (generalized) | CPT/HCPCS: 97110; 97161 ==

== ENCOUNTER → 2024-01-22 10:50 | Outpatient (BNVA) | payer OTHER, SELFPAY | PROVIDERS: Visit Provider Podiatrist Foot & Ankle Surgery | DX: Z98.890 Other specified postprocedural states (principal); M95.8 Other specified acquired deformities of musculoskeletal system; M25.372 Other instability, left ankle; M25.572 Pain in left ankle and joints of left foot | CPT/HCPCS: 99024 ==

== ENCOUNTER 2024-01-27 08:41 | Outpatient (CLI) | payer OTHER, SELFPAY ==
--- NOTE | 2024-01-27 08:43 | US_ITS ---
WS: [id number] RIGHT UPPER QUADRANT ULTRASOUND HISTORY: UPPER ABDOMINAL PAIN COMPARISON: 01/13/2023, CT 11/16/2023 Liver: 15.0 cm in length. Normal size liver. Diffuse coarse echotexture from hepatic steatosis. No ma ss identified. No bile duct dilatation. Portal Vein: Normal hepatopetal flow with monophasic waveform. Gallbladder: Normally distended gallbladder with no stones or wall thickening. CBD: 0.3 cm Pancreas: Not visualized. Right kidney: 12.1 cm in length. Normal size and echogenicity. No hydronephrosis or mass. Aorta and IVC: Unremarkable abdominal aorta and IVC. No ascites. US/US abdomen limited [id number] IMPRESSION: 1. Negative gallbladder. 2. Mild hepatic steatosis. No intrahepatic dilatation. 3. Nonvisualized pancreas.
== END 2024-01-27 08:42 | disposition home or self-care (01) ==
LOC: RAD 08:41
PROVIDERS: PCP Family Medicine; Visit Provider Family Medicine
DX: K76.0 Fatty (change of) liver, not elsewhere classified (principal); R10.10 Upper abdominal pain, unspecified
CPT/HCPCS: 76705

== ENCOUNTER 2024-02-19 06:00 | Outpatient (RCR) | payer OTHER, SELFPAY | END 2024-03-19 23:59 | disposition home or self-care (01) | LOC: SPT 06:00 | PROVIDERS: PCP Family Medicine; Visit Provider Podiatrist Foot & Ankle Surgery | DX: S94.8X Injury of other nerves at ankle and foot level (principal); X58.XXXD Exposure to other specified factors, subsequent encounter | CPT/HCPCS: 97110 ==

== ENCOUNTER → 2024-02-24 06:57 | Outpatient (BNVA) | payer OTHER, SELFPAY | PROVIDERS: PCP Family Medicine; Visit Provider Podiatrist Foot & Ankle Surgery | DX: Z98.890 Other specified postprocedural states (principal); M95.8 Other specified acquired deformities of musculoskeletal system; M25.373 Other instability, unspecified ankle; M25.372 Other instability, left ankle; M25.572 Pain in left ankle and joints of left foot | CPT/HCPCS: 99024 ==

== ENCOUNTER → 2024-03-16 07:30 | Outpatient (BNVA) | payer OTHER, SELFPAY | PROVIDERS: PCP Family Medicine; Visit Provider Podiatrist Foot & Ankle Surgery | DX: Z98.890 Other specified postprocedural states (principal); M95.8 Other specified acquired deformities of musculoskeletal system; M25.372 Other instability, left ankle | CPT/HCPCS: 99213 ==

== ENCOUNTER 2024-03-20 06:00 | Outpatient (RCR) | payer OTHER, SELFPAY | END 2024-04-06 23:59 | disposition home or self-care (01) | LOC: SPT 06:00 | PROVIDERS: PCP Family Medicine; Visit Provider Podiatrist Foot & Ankle Surgery | DX: M25.373 Other instability, unspecified ankle (principal); M25.579 Pain in unspecified ankle and joints of unspecified foot | CPT/HCPCS: 97110 ==

== ENCOUNTER → 2024-05-18 08:00 | Outpatient (BNVA) | payer OTHER, SELFPAY | PROVIDERS: PCP Family Medicine; Visit Provider Podiatrist Foot & Ankle Surgery | DX: Z98.890 Other specified postprocedural states (principal); M95.8 Other specified acquired deformities of musculoskeletal system; M25.372 Other instability, left ankle | CPT/HCPCS: 99213 ==